=== PATIENT | female | born 1960 | race African-American/Black ===

== ENCOUNTER 2016-10-26 07:12 | Emergency (ER) | payer MEDICARE, OTHER ==
[~2016-10-26] VITALS: Ht 162.6 cm; Wt 79.4 kg
[~2016-10-26 07:12] MED LIST: ASPIRIN81 MG ORAL; AUGMENTIN 875-1 EAC1 ORAL; BENTYL10 MG ORAL; CYCLOBENZAPRINE10 MG ORAL; IBUPROFEN600 MG ORAL; IBUPROFEN600 MG PO; INSULIN LEVIMIR SQ; KEFLEX500 MG ORAL; METFORMIN HCL1000 M1 ORAL; MONISTAT 11 EACH VG; NORCO 5-325 TA1 EACH ORAL; TRAMADOL HCL50 MG ORAL; TYLENOL325 MG ORAL; ZOFRAN4 MG ORAL
--- NOTE | 2016-10-26 07:40 | Emergency Room Report ---
History of Present Illness General Chief Complaint: Back Pain-No Injury Source: Patient Present Illness HPI Presents with low back pain and hip pain on the left-hand side. She believes the rain in the cold caused her to get worse. She has no more pain medication at home aside from ibuprofen. Also feels muscle stiffness up in the upper part of her back. Muscle relaxants help - make her sleepy. She denies any fevers, cough, chest pain, dysuria it has been a change in her bowels. She denies saddle numbness. She's not on blood thinners. The patient had stabilization of her lumbar spine with screws in June. There has been exacerbations of the back pain since then. Allergies: Coded Allergies: No Known Allergies (Unverified , 04/14/13) Patient History Past Medical History: see triage record Past Surgical History: other - lumbar surgery Social History: Reports: smoking Social History Narrative with Reviewed Nursing Documentation: PMH: Agreed, PSxH: Agreed Nursing Documentation-PMH Hx Cardiac Problems: No Hx Hypertension: No Hx Pacemaker: No Hx Asthma: No Hx COPD: No Hx Diabetes: No Hx Cancer: No Hx Dialysis: No History Of Psychiatric Problem: No Hx Neurological Problems: No Hx Cerebrovascular Accident: No Hx Seizures: No Review of Systems All Other Systems: negative except mentioned in HPI Physical Exam Vital Signs Date Time Temp Pulse Resp B/P Pulse Ox O2 Delivery O2 Flow Rate FiO2 10/26/16 07:28 98.1 78 16 130/80 98 Room Air Sp02 EP Interpretation: reviewed, normal General Appearance: well appearing, no apparent distress, GCS 15 Head: normocephalic, atraumatic Eyes: bilateral eye PERRL, bilateral eye normal inspection ENT: hearing grossly normal, normal voice Neck: full range of motion, supple Respiratory: lungs clear, no respiratory distress, speaking full sentences Cardiovascular #1: regular rate, rhythm, no edema Gastrointestinal: normal inspection, non tender Musculoskeletal: normal range of motion - SLR with some increase in back pain, not sciatic pain, no calf tenderness, other - upper back muscle tenderness and stiffness. Lumbar tenderness also, not central. Neurologic: alert, motor strength/tone normal, DTRs symmetric, sensory intact, normal gait, speech normal Psychiatric: mood/affect normal Skin: no rash, other - lumbar scar Medical Decision Making Diagnostic Impression: Primary Impression: Back Pain Additional Impression: Muscle spasm ER Course Patient presents with exacerbation of back pain. No trauma. No red flag symptoms or signs. Studies not indicated. Analgesia ordered. Improved with treatment. Patient stable for outpatient observation and treatment. Last Vital Signs Date Time Temp Pulse Resp B/P Pulse Ox O2 Delivery O2 Flow Rate FiO2 10/26/16 08:57 98.0 62 16 98 Room Air BP 120/60 Status: improved Disposition: HOME, SELF-CARE Condition: Improved Scripts Cyclobenzaprine Hcl* (FLEXERIL*) 10 Mg Tablet 10 MG ORAL THREE TIMES A DAY, #10 TAB Prov: Richar Robles M.D. 10/26/16 Hydrocodone Bit/Acetaminophen 5-325* (NORCO 5-325*) 1 Each Tablet 1 TAB ORAL Q6H Y for For Pain, #14 TAB 0 Refills Prov: Richar Robles M.D. 10/26/16 Richar Robles M.D. Oct 26, 2016 07:40
[2016-10-26] MEDS ORDERED: Oxycodone/Acetaminophen 5-325 ORAL ONE (07:45)
[2016-10-26] MEDS ORDERED: Ketorolac 60mg Inj IM ONE (07:45)
[2016-10-26] MEDS ORDERED: CYCLOBENZAPRINE10 MG ORAL (08:28)
[2016-10-26] MEDS ORDERED: NORCO 5-325 TA1 EACH ORAL (08:28)
[2016-10-26 08:56] VITALS: BP 120/60
== END 2016-10-26 09:02 | disposition home or self-care (01) ==
LOC: EMR 08:05
DX: M54.9 Dorsalgia, unspecified (principal); M62.838 Other muscle spasm; F17.200 Nicotine dependence, unspecified, uncomplicated
CPT/HCPCS: 96372; 99284

== ENCOUNTER 2016-11-04 15:15 | Outpatient (RCR) | payer MEDICARE, OTHER | END 2016-11-25 | disposition home or self-care (01) | LOC: PTY 15:15 | DX: M54.5 Low back pain (principal); E11.9 Type 2 diabetes mellitus without complications | CPT/HCPCS: 97110; 97162; G8978; G8979 ==

== ENCOUNTER 2017-04-01 03:23 | Emergency (ER) | payer MEDICARE, OTHER ==
[~2017-04-01] VITALS: Ht 162.6 cm; Wt 76.7 kg
[2017-04-01 03:55] VITALS: BP 152/88
[2017-04-01] MEDS ORDERED: PERCOCET 5-3251 EACH ORAL (03:56)
--- NOTE | 2017-04-01 03:57 | Emergency Room Report ---
History of Present Illness General Chief Complaint: Back Pain-No Injury Source: Patient Present Illness HPI Is a 56-year-old female with previous back surgery. She was doing well until now. She presents with chief complaint of lower back pain. Has been on off for over a week now. Pain is to her lower back and radiating to the left and right intermittently. No incontinence of bowel or urine. No trauma. No anesthesia. Pain is 10 out of 10. She is currently working 2 jobs and is on her feet a lot. Also a lot of motion and lifting. Allergies: Coded Allergies: No Known Allergies (Unverified , 04/14/13) Patient History Past Medical History: see triage record, old chart reviewed Past Surgical History: other Pertinent Family History: none Social History: Denies: smoking Now: No Immunizations: other Reviewed Nursing Documentation: PMH: Agreed, PSxH: Agreed Nursing Documentation-PMH Hx Cardiac Problems: No Hx Hypertension: No Hx Pacemaker: No Hx Asthma: No Hx COPD: No Hx Diabetes: No Hx Cancer: No Hx Dialysis: No Hx Neurological Problems: No Hx Cerebrovascular Accident: No Hx Seizures: No Review of Systems Eye: Denies: blurred vision, eye pain ENT: Denies: ear pain, nose congestion, throat swelling Respiratory: Denies: cough, shortness of breath Cardiovascular: Denies: chest pain, palpitations Gastrointestinal: Denies: abdominal pain, diarrhea, nausea, vomiting Musculoskeletal: Reports: back pain, Denies: joint pain Skin: Denies: rash Neurological: Denies: headache, numbness Endocrine: Denies: increased thirst, increased urine Hematologic/Lymphatic: Denies: easy bruising All Other Systems: negative except mentioned in HPI Physical Exam Vital Signs Date Time Temp Pulse Resp B/P Pulse Ox O2 Delivery O2 Flow Rate FiO2 04/01/17 03:27 98.1 78 16 152/88 99 Room Air vitals normal except for high blood pressure Sp02 EP Interpretation: reviewed, normal General Appearance: well appearing, no apparent distress, alert Head: normocephalic, atraumatic Eyes: bilateral eye EOMI, bilateral eye PERRL ENT: hearing grossly normal, normal pharynx Neck: full range of motion, supple, no meningismus Respiratory: chest non-tender, lungs clear, normal breath sounds Cardiovascular #1: regular rate, rhythm, no murmur Gastrointestinal: normal bowel sounds, non tender, no mass, no organomegaly, no bruit, non-distended Musculoskeletal: gait/station normal, normal range of motion, other - Diffuse lower lumbar tenderness. Midline scar. Neurologic: alert, oriented x3 Psychiatric: mood/affect normal Skin: warm/dry Medical Decision Making Diagnostic Impression: Primary Impression: acute lumbar strain ER Course Patient presents with exacerbation of lower back pain. No evidence of cauda equina syndrome, spinal epidural abscess or neoplastic process. Her back pain is exacerbated by her mom hours at work. We'll discharge home. Last Vital Signs Date Time Temp Pulse Resp B/P Pulse Ox O2 Delivery O2 Flow Rate FiO2 04/01/17 03:27 98.1 78 16 152/88 99 Room Air Status: improved Disposition: HOME, SELF-CARE Condition: Stable Scripts Oxycodone/Acetaminophen 5-325* (PERCOCET 5-325 MG TABLET*) 1 Each Tablet 1 TAB ORAL Q6H Y for For Pain, #20 TAB Prov: THEODORE ALBA M.D. 04/01/17 Referrals: NON PHYSICIAN (PCP) Patient Instructions: Back Pain, Adult Additional Instructions: Followup with your Dr. in 7 days. Return if symptom worsen. THEODORE ALBA M.D. Apr 01, 2017 03:56
[2017-04-01] MEDS ORDERED: HYDROmorphone 1mg/ml Carpuject IM ONE (04:00)
[2017-04-01 04:05] VITALS: BP 152/88
== END 2017-04-01 04:06 | disposition home or self-care (01) ==
LOC: EMR 03:36
DX: S39.012A Strain of muscle, fascia and tendon of lower back, initial encounter (principal); X50.9XXA Other and unspecified overexertion or strenuous movements or postures, initial encounter; Y92.9 Unspecified place or not applicable
CPT/HCPCS: 96372; 99283; J1170

== ENCOUNTER 2017-08-02 23:34 | Emergency (ER) | payer MEDICARE, OTHER ==
[~2017-08-02] VITALS: Ht 162.6 cm; Wt 78.5 kg
[~2017-08-02 23:34] MED LIST changes: +PERCOCET 5-3251 EACH ORAL
[2017-08-02] MEDS ORDERED: UNOBMED (23:42)
[2017-08-02 23:45] VITALS: BP 166/84
[2017-08-03] LABS: APPEARANCE,URINE CLEAR; BILIRUBIN, URINE NEGATIVE (NEGATIVE); COLOR,URINE PALE YELLOW; GLUCOSE, URINE (UA) NEGATIVE (NEGATIVE); KETONES,URINE NEGATIVE (NEGATIVE); LEUKOCYTE ESTERASE ,URINE NEGATIVE (NEGATIVE); NITRITE,URINE NEGATIVE (NEGATIVE); PH,URINE 7 (4.5-8.0); PROTEIN,URINE NEGATIVE (NEGATIVE); UROBILINOGEN,URINE NORMAL MG/DL (0.0-1.0)
--- NOTE | 2017-08-03 00:04 | Emergency Room Report ---
History of Present Illness General Chief Complaint: Female Urogenital Problems Source: Patient Present Illness HPI Is a 57-year-old female who presents with chief complaint of vaginal itching and redness. Onset for last week or so. She saw her parasitology teacher a week and half ago for mild itching. Diagnosis with atrophic vaginal wall and prescribe estrogen cream. She's also tried Monistat which makes her break out more. Denies any fever chills denies any nausea vomiting. She said she to her that was negative. She essentially active with her . Allergies: Coded Allergies: No Known Allergies (Unverified , 04/14/13) Patient History Past Medical History: see triage record, old chart reviewed Past Surgical History: other Pertinent Family History: none Social History: Denies: smoking Last Menstrual Period: n/a Now: No Immunizations: other Reviewed Nursing Documentation: PMH: Agreed, PSxH: Agreed Nursing Documentation-PMH Hx Cardiac Problems: No Hx Hypertension: No Hx Pacemaker: No Hx Asthma: No Hx COPD: No Hx Diabetes: No Hx Cancer: No Hx Dialysis: No Hx Neurological Problems: No Hx Cerebrovascular Accident: No Hx Seizures: No Review of Systems Eye: Denies: eye pain, blurred vision ENT: Denies: ear pain, nose congestion, throat swelling Respiratory: Denies: cough, shortness of breath Cardiovascular: Denies: chest pain, palpitations Gastrointestinal: Denies: abdominal pain, diarrhea, nausea, vomiting Musculoskeletal: Denies: back pain, joint pain Skin: Denies: rash Neurological: Denies: headache, numbness Endocrine: Denies: increased thirst, increased urine Hematologic/Lymphatic: Denies: easy bruising All Other Systems: negative except mentioned in HPI Physical Exam Vital Signs Date Time Temp Pulse Resp B/P (MAP) Pulse Ox O2 Delivery O2 Flow Rate FiO2 08/02/17 23:36 97.3 69 16 166/84 100 Room Air vitals with high blood pressure Sp02 EP Interpretation: reviewed, normal General Appearance: well appearing, no apparent distress, alert Head: normocephalic, atraumatic Eyes: bilateral eye PERRL, bilateral eye EOMI ENT: hearing grossly normal, normal pharynx Neck: full range of motion, supple, no meningismus Respiratory: chest non-tender, lungs clear, normal breath sounds Cardiovascular #1: regular rate, rhythm, no murmur Gastrointestinal: normal bowel sounds, non tender, no mass, no organomegaly, no bruit, non-distended Genitourinary: other - Pelvic exam done with female nurse walnut dehydrator operator. Externally, there is pimply lesions on the right labia majora. Internally, there is copious amount of whitish dc. Musculoskeletal: back normal, gait/station normal, normal range of motion Neurologic: alert, oriented x3 Psychiatric: mood/affect normal Skin: warm/dry Medical Decision Making Diagnostic Impression: Primary Impression: Vaginitis Qualified Codes: N76.0 - Acute vaginitis ER Course Patient with a vaginitis. No evidence of acute vaginosis or Trichomonas. She may have gonorrhea. I sent a culture and go ahead and treat her with a shot of Rocephin. No evidence of UTI. No evidence of herpes. We'll discharge home. Last Vital Signs Date Time Temp Pulse Resp B/P (MAP) Pulse Ox O2 Delivery O2 Flow Rate FiO2 08/02/17 23:36 97.3 69 16 166/84 100 Room Air Status: improved Disposition: HOME, SELF-CARE Condition: Stable Referrals: NON PHYSICIAN (PCP) Patient Instructions: Vaginitis Additional Instructions: Followup your Dr. in 7 days. Return if worse. THEODORE ALBA M.D. Aug 03, 2017 00:04
[2017-08-03 01:18] VITALS: BP 166/84
== END 2017-08-03 01:17 | disposition home or self-care (01) ==
LOC: EMR 23:50
DX: N76.0 Acute vaginitis (principal)
CPT/HCPCS: 81003; 87081; 87205; 87210; 87590; 96372; 99283; J0696

== ENCOUNTER 2017-10-07 22:25 | Emergency (ER) | payer MEDICARE, OTHER ==
[~2017-10-07] VITALS: Ht 162.6 cm; Wt 78.9 kg
[~2017-10-07 22:25] MED LIST changes: +UNOBMED
[2017-10-07] MEDS ORDERED: METFORMIN HCL500 M1 ORAL (22:44)
[2017-10-07] MEDS ORDERED: TRAMADOL HCL50 MG ORAL (22:44)
[2017-10-07 22:50] VITALS: BP 151/88
[2017-10-07] MEDS ORDERED: PREDNISONE20 MG ORAL (23:24)
[2017-10-07 23:34] VITALS: BP 151/88
--- NOTE | 2017-10-07 23:58 | Emergency Room Report ---
History of Present Illness General Chief Complaint: Stroke Symptoms Source: Patient Present Illness HPI 57-year-old female, no significant past medical history, presenting with left- sided facial numbness and slurred speech. States it happened gradually. No other complaints. No headache no neck pain. No arm or leg weakness Allergies: Coded Allergies: No Known Allergies (Unverified , 04/14/13) Patient History Past Medical History: see triage record Past Surgical History: none Pertinent Family History: none Last Menstrual Period: n/a Reviewed Nursing Documentation: PMH: Agreed, PSxH: Agreed Nursing Documentation-PMH Past Medical History: No History, Except For Hx Cardiac Problems: No Hx Hypertension: No Hx Pacemaker: No Hx Asthma: No Hx COPD: No Hx Diabetes: Yes - dm2 Hx Cancer: No Hx Dialysis: No Hx Neurological Problems: No Hx Cerebrovascular Accident: No Hx Seizures: No Review of Systems All Other Systems: negative except mentioned in HPI Physical Exam Vital Signs Date Time Temp Pulse Resp B/P (MAP) Pulse Ox O2 Delivery O2 Flow Rate FiO2 10/07/17 22:38 99.0 70 16 151/88 98 Room Air Sp02 EP Interpretation: reviewed, normal General Appearance: normal inspection, well appearing, no apparent distress, alert, GCS 15, non-toxic Head: normocephalic, atraumatic Eyes: bilateral eye normal inspection, bilateral eye PERRL, bilateral eye EOMI ENT: normal ENT inspection, normal pharynx, normal voice, moist mucus membranes Neck: normal inspection, full range of motion, supple Respiratory: normal inspection, lungs clear, normal breath sounds, no respiratory distress, no retraction, no wheezing, speaking full sentences, chest symmetrical Cardiovascular #1: normal inspection, regular rate, rhythm, no edema, normal capillary refill Cardiovascular #2: 2+ radial (R), 2+ radial (L) Gastrointestinal: normal inspection, non tender, soft, non-distended, no guarding Musculoskeletal: normal inspection, back normal, normal range of motion, non- tender Neurologic: alert, oriented x3, responsive, motor strength/tone normal, normal gait, speech normal, other - Left sided facial droop, unable to fully close the left eye, unable to lift her left eyebrow Psychiatric: normal inspection, judgement/insight normal, memory normal Skin: normal inspection, normal color, no rash, warm/dry, well hydrated, normal turgor Medical Decision Making Diagnostic Impression: Primary Impression: Chiang's palsy ER Course 57-year-old female with left-sided facial numbness DDX: Chiang's palsy on exam Plan: None CT head was already ordered for stroke code ER course: Patient has remained stable during ED stay. Disposition: Patient is to be discharged to home. Prescriptions given are prednisone Patient is instructed to follow up with their primary care doctor within 5 days. Please note that this Emergency Department Report was dictated using [employer] driver technology software, occasionally this can lead to erroneous entry secondary to interpretation by the dictation equipment CT/MRI/US Diagnostic Results CT/MRI/US Diagnostic Results : Imaging Test Ordered: ct head Impression CT HEAD: No ICH, mass effect or edema. No evidence of acute cortical stroke. Visualized sinuses and mastoid air cells are clear. Last Vital Signs Date Time Temp Pulse Resp B/P (MAP) Pulse Ox O2 Delivery O2 Flow Rate FiO2 10/07/17 22:38 99.0 70 16 151/88 98 Room Air Disposition: HOME, SELF-CARE Condition: Stable Scripts Prednisone* (PREDNISONE*) 20 Mg Tablet 60 MG ORAL DAILY, #42 TAB Prov: Janeen Olsen M.D. 10/07/17 Patient Instructions: Chiang Palsy Janeen Olsen M.D. Oct 07, 2017 23:58
--- NOTE | 2017-10-08 09:40 | Diagnostic Imaging Report ---
Indication: Headache Technique: Contiguous 5 mm thick transaxial imaging of the head obtained in a Siemens Sensation [address] scanner. Soft tissue and bone windows generated. Automatic Exposure Control was utilized. Total Dose length Product (DLP): 1298.[address] Dose Index Volume (CTDIvol): 70.38 mGy Comparison: none Findings: The size and configuration of the cortical sulci, basal cisterns, and ventricles are within normal limits for age. There is no mass effect, midline shift, or edema identified. There is no evidence of acute hemorrhage or abnormal intra-axial or extra-axial fluid collections. The bones and soft tissues are unremarkable. Impression: No mass effect, edema or acute bleed. [facility] has communicated the preliminary results to the Emergency Department. Their findings are largely concordant with this report. The CT scanner at [facility] is accredited by the [employer] and the scans are performed using dose optimization techniques as appropriate to a performed exam including Automatic Exposure control.
== END 2017-10-07 23:40 | disposition home or self-care (01) ==
LOC: EMR 23:37
DX: G51.0 Bell's palsy (principal); R51 Headache; E11.9 Type 2 diabetes mellitus without complications
CPT/HCPCS: 70450; 99284

== ENCOUNTER → 2018-01-13 | Emergency (ER) | payer MEDICARE, OTHER ==
[~2018-01-13] VITALS: Ht 162.6 cm; Wt 78.9 kg
[~2018-01-13] MED LIST changes: +METFORMIN HCL500 M1 ORAL; +PREDNISONE20 MG ORAL
[2018-01-13 16:25] VITALS: BP 152/82
--- NOTE | 2018-01-13 21:58 | Emergency Room Report ---
History of Present Illness General Chief Complaint: Back Pain-No Injury Present Illness HPI Patient left without being seen. Allergies: Coded Allergies: No Known Allergies (Unverified , 04/14/13) Patient History Past Medical History: see triage record, old chart reviewed Reviewed Nursing Documentation: PMH: Agreed; PSxH: Agreed Nursing Documentation-PMH Hx Cardiac Problems: No Hx Hypertension: No Hx Pacemaker: No Hx Asthma: No Hx COPD: No Hx Diabetes: Yes - dm2 Hx Cancer: No Hx Dialysis: No Hx Neurological Problems: No - Lower back surgery 06/2017 Hx Cerebrovascular Accident: No Hx Seizures: No Review of Systems All Other Systems: negative except mentioned in HPI Physical Exam Vital Signs Date Time Temp Pulse Resp B/P (MAP) Pulse Ox O2 Delivery O2 Flow Rate FiO2 01/13/18 16:25 98.3 82 19 152/82 99 Room Air 98.2 Medical Decision Making PA Attestation Dr. Cook is my supervising Physician whom patient management has been discussed with. Diagnostic Impression: Primary Impression: Patient left without being seen ER Course Patient left without being seen. Last Vital Signs Date Time Temp Pulse Resp B/P (MAP) Pulse Ox O2 Delivery O2 Flow Rate FiO2 01/13/18 16:25 98.3 82 19 152/82 99 Room Air 98.2 Disposition: LEFT W/OUT BEING SEEN Referrals: NON PHYSICIAN (PCP) Philip Ward Jan 13, 2018 21:58
== END | disposition left against medical advice (07) ==
LOC: EMR 18:00
DX: M54.9 Dorsalgia, unspecified (principal); Z53.21 Procedure and treatment not carried out due to patient leaving prior to being seen by health care provider
CPT/HCPCS: 99281

== ENCOUNTER 2018-05-09 09:10 | Emergency (ER) | payer MEDICARE, OTHER ==
[~2018-05-09] VITALS: Ht 162.6 cm; Wt 79.8 kg
[2018-05-09 09:26] VITALS: BP 149/73
[2018-05-09] MEDS ORDERED: Norco 5mg/325mg tab ORAL ONE (10:45)
[2018-05-09 10:47] LABS: APPEARANCE,URINE CLEAR; BILIRUBIN, URINE NEGATIVE (NEGATIVE); COLOR,URINE PALE YELLOW; GLUCOSE, URINE (UA) NEGATIVE (NEGATIVE); KETONES,URINE NEGATIVE (NEGATIVE); LEUKOCYTE ESTERASE ,URINE NEGATIVE (NEGATIVE); NITRITE,URINE NEGATIVE (NEGATIVE); PH,URINE 8 (4.5-8.0); PROTEIN,URINE NEGATIVE (NEGATIVE); UROBILINOGEN,URINE NORMAL MG/DL (0.0-1.0)
[2018-05-09] MEDS ORDERED: LIDOCAINE700 M1 TP (11:04)
[2018-05-09] MEDS ORDERED: NORCO 5-325 TA1 EACH ORAL (11:04)
[2018-05-09 11:12] VITALS: BP 149/73
--- NOTE | 2018-05-14 07:39 | Emergency Room Report ---
History of Present Illness General Chief Complaint: Pain Source: Patient, Medical Record Present Illness HPI Patient is a 57-year-old female presented after the continued low back pain. Patient gradual onset of symptoms. Patient reports having prior history of lumbar disc disease which had previously had imaging studies performed. Patient states she had prior lumbar pain. She reports similar symptoms in the past. She denies any new weakness. She did not have any bladder or bowel dysfunction. Allergies: Coded Allergies: No Known Allergies (Unverified , 04/14/13) Patient History Past Medical History: see triage record Reviewed Nursing Documentation: PMH: Agreed; PSxH: Agreed Nursing Documentation-PMH Past Medical History: No History, Except For Hx Cardiac Problems: No Hx Hypertension: No Hx Pacemaker: No Hx Asthma: No Hx COPD: No Hx Diabetes: Yes - dm2 Hx Cancer: No Hx Dialysis: No Hx Neurological Problems: No - Lower back surgery 06/2017 Hx Cerebrovascular Accident: No Hx Seizures: No Medical Decision Making Diagnostic Impression: Primary Impression: Chronic back pain ER Course Patient presented for back pain. Differential diagnosis included but was not limited to herniated disc, cauda equina syndrome, abdominal aortic aneurysm, perforated ulcer, spinal epidural abscess, spinal stenosis, lumbar fracture, metastatic lesion, pyelonephritis. Patient has a benign exam and does not appear to require any further imaging or laboratory testing at this time. The patient presented some worsening of her chronic back pain. Patient given prescription for pain medications. She is advised follow-up with her primary care physician for further evaluation and treatment. The patient is advised to follow up with primary care doctor in 1-2 days. Patient is advised to return if any worsening condition or if any changes in status that are concerning. This report is dictated with [employer] forming machine tender software which may occasionally lead to discrepancies related to use of this software. Labs Test 05/09/18 10:34 Urine Color Pale yellow Urine Appearance Clear Urine pH 8 (4.5-8.0) Urine Specific [place] 1.005 (1.005-1.035) Urine Protein Negative (NEGATIVE) Urine Glucose (UA) Negative (NEGATIVE) Urine Ketones Negative (NEGATIVE) Urine Occult Blood Negative (NEGATIVE) Urine Nitrite Negative (NEGATIVE) Urine Bilirubin Negative (NEGATIVE) Urine Urobilinogen Normal MG/DL (0.0-1.0) Urine Leukocyte Esterase Negative (NEGATIVE) Status: improved Disposition: HOME, SELF-CARE Condition: Stable Scripts Hydrocodone Bit/Acetaminophen 5-325* (NORCO 5-325*) 1 Each Tablet 1 TAB ORAL Q6H PRN for For Pain, #10 TAB 0 Refills Prov: Festus Peng MD 05/09/18 Lidocaine (Lidocaine) 1 Each Adh..patch 5 % TP DAILY, #20 PATCH Prov: Festus Peng MD 05/09/18 Patient Instructions: Back Pain, Adult Festus Peng MD May 14, 2018 07:39
== END 2018-05-09 11:15 | disposition home or self-care (01) ==
LOC: EMR 09:50
DX: G89.29 Other chronic pain (principal); M54.5 Low back pain; E11.9 Type 2 diabetes mellitus without complications
CPT/HCPCS: 81003; 99284

== ENCOUNTER 2018-06-03 14:43 | Emergency (ER) | payer MEDICARE, OTHER ==
[~2018-06-03] VITALS: Ht 162.6 cm; Wt 78.9 kg
[~2018-06-03 14:43] MED LIST changes: +LIDOCAINE700 M1 TP
[2018-06-03] MEDS ORDERED: AMLODIPINE BESYL5 MG ORAL (14:58)
[2018-06-03] MEDS ORDERED: Promethazine/Codeine 5ml UD ORAL ONE (15:45)
[2018-06-03] MEDS ORDERED: Albuterol ud Inhalation HHN ONE (15:45)
[2018-06-03 16:05] VITALS: BP 157/78
--- NOTE | 2018-06-03 16:10 | Emergency Room Report ---
History of Present Illness General Chief Complaint: Flu Like Symptoms Source: Patient Present Illness HPI 57-year-old female presents to the emergency department complaining of persistent dry cough with nasal congestion and rhinorrhea, frontal sinus pressure headache and sore throat 2 days. Pt. reports 8/10 in severity Sore throat. Patient reports subjective fevers and chills she states that she's been taking DayQuil without relief of her symptoms. Patient also reports generalized fatigue. Patient denies recent travel or ill contacts with similar symptoms. Patient denies sudden onset of her headache. She reports being diagnosed with asthma as a child she states she is having some wheezing and cough is worse at night. Patient denies epigastric pain or history of GERD. Denies ear pain, high fevers, neck pain/stiffness, irritability, photophobia dehydration, N/V/D. Denies Cp, Palpitations, LOC, AMS, seizures, paresthesias, or changes in Hearing or vision.. Denies hx of smoking or COPD. Allergies: Coded Allergies: No Known Allergies (Unverified , 04/14/13) Patient History Past Medical History: see triage record Past Surgical History: none Pertinent Family History: none Now: No Immunizations: UTD - except for Pneumoncoccal . Reviewed Nursing Documentation: PMH: Agreed; PSxH: Agreed Nursing Documentation-PMH Past Medical History: No History, Except For Hx Cardiac Problems: No Hx Hypertension: Yes Hx Pacemaker: No Hx Asthma: No Hx COPD: No Hx Diabetes: Yes Hx Cancer: No Hx Dialysis: No Hx Neurological Problems: No - Lower back surgery 06/2017 Hx Cerebrovascular Accident: No Hx Seizures: No Review of Systems All Other Systems: negative except mentioned in HPI Physical Exam Vital Signs Date Time Temp Pulse Resp B/P (MAP) Pulse Ox O2 Delivery O2 Flow Rate FiO2 06/03/18 14:54 98.3 80 14 157/78 97 Room Air 98.2 Sp02 EP Interpretation: reviewed, normal General Appearance: no apparent distress, alert, GCS 15, non-toxic Head: normocephalic, atraumatic Eyes: bilateral eye normal inspection, bilateral eye PERRL ENT: hearing grossly normal, normal voice, TMs + canals normal, uvula midline, moist mucus membranes, nasal congestion, pharyngeal erythema, other - no tonsillar swelling or exudates Neck: full range of motion, no meningismus, no bony tend Respiratory: chest non-tender, lungs clear, speaking full sentences, wheezing - scant bialteral wheezes Cardiovascular #1: regular rate, rhythm, no edema, normal capillary refill Musculoskeletal: back normal, gait/station normal, normal range of motion, non- tender Neurologic: alert, oriented x3, responsive, motor strength/tone normal, sensory intact, normal gait, speech normal, grossly normal Psychiatric: judgement/insight normal Skin: normal color, no rash, warm/dry, well hydrated Lymphatic: no adenopathy Medical Decision Making PA Attestation Dr. Israel is my supervising Physician whom patient management has been discussed with. Diagnostic Impression: Primary Impression: Acute bronchitis Qualified Codes: J20.9 - Acute bronchitis, unspecified Additional Impression: Viral syndrome ER Course 57-year-old female presents to the emergency department complaining of persistent dry cough with nasal congestion and rhinorrhea, frontal sinus pressure headache and sore throat 2 days. Pt. reports 8/10 in severity Sore throat. Patient reports subjective fevers and chills she states that she's been taking DayQuil without relief of her symptoms. Patient also reports generalized fatigue. Patient denies recent travel or ill contacts with similar symptoms. Patient denies sudden onset of her headache. She reports being diagnosed with asthma as a child she states she is having some wheezing and cough is worse at night. Patient denies epigastric pain or history of GERD. Denies ear pain, high fevers, neck pain/stiffness, irritability, photophobia dehydration, N/V/D. Denies Cp, Palpitations, LOC, AMS, seizures, paresthesias, or changes in Hearing or vision.. Denies hx of smoking or COPD. Ddx considered but are not limited to URI, pneumonia, PE, strep pharyngitis, meningitis, bronchitis, cardiac etiology just to name a few. Vital signs: Pt.is afebrile VS are WNL H&PE are most consistent with bronchitis ORDERS: none required at this time, the diagnosis is clinical ED INTERVENTIONS: -Albuterol HHN -Cough Syrup PO -I do not identify an emergent condition at this time. With current presentation , pt. is stable for close outpatient follow up and conservative treatment. D/ w pt. to return promptly to ED with worsening or new symptoms.- Pt. verbalizes' understanding and agreement with proposed treatment plan.proposed treatment plan. DISCHARGE: At this time pt. is stable for d/c to home. Will provide printed patient care instructions, and any necessary prescriptions. Care plan and follow up instructions have been discussed with the patient prior to discharge. Last Vital Signs Date Time Temp Pulse Resp B/P (MAP) Pulse Ox O2 Delivery O2 Flow Rate FiO2 06/03/18 16:05 98.2 18 157/78 98 Room Air 98.2 06/03/18 16:05 79 Disposition: HOME, SELF-CARE Condition: Stable Scripts Acetaminophen* (TYLENOL EXTRA STRENGTH*) 500 Mg Tablet 500 MG ORAL Q6H PRN for Mild Pain/Temp > 100.5, #20 TAB 0 Refills Prov: Gin Gilbert 06/03/18 Albuterol Sulfate* (ALBUTEROL SULFATE MDI*) 8.5 Gm Hfa.aer.ad 2 PUFF INH Q3H, #1 INH 0 Refills Prov: Gin Gilbert 06/03/18 Codeine/Promethazine Hcl* (PROMETHAZINE-CODEINE SYRUP*) 118 Ml Syrup 5 ML ORAL Q6H PRN for For Cough, #120 ML 0 Refills Prov: Gin Gilbert 06/03/18 Referrals: NON PHYSICIAN (PCP) Departure Forms: Return to Work Return to Work Date: Jun 07, 2018 Work Restrictions: None Return to Full Activity: Jun 07, 2018 Patient Instructions: Acute Bronchitis, [id number] Additional Instructions: Take medications as directed. Follow up with a Primary Care Provider in 3-5 days, even if your symptoms have resolved. --Please review list of primary care clinics, if you do not already have a primary care provider Return sooner to ED if new symptoms occur, or current symptoms become worse. Do not drink alcohol, drive, or operate heavy machinery while taking Cough Syrup as this may cause drowsiness. - Please note that this Emergency Department Report was dictated using [employer] tender technology software, occasionally this can lead to erroneous entry secondary to interpretation by the dictation equipment. Gin Gilbert Jun 03, 2018 16:10
[2018-06-03] MEDS ORDERED: TYLENOL EXTRA500 MG ORAL (16:11)
[2018-06-03] MEDS ORDERED: PROMETHAZINE-C118 M1 ORAL (16:11)
[2018-06-03] MEDS ORDERED: ALBUTEROL SULF8.5 GM INH (16:11)
[2018-06-03 18:12] VITALS: BP 157/78
== END 2018-06-03 16:00 | disposition home or self-care (01) ==
LOC: EMR 16:00
DX: J20.9 Acute bronchitis, unspecified (principal); B34.9 Viral infection, unspecified; E11.9 Type 2 diabetes mellitus without complications; I10 Essential (primary) hypertension
CPT/HCPCS: 94640; 94664; 99283

== ENCOUNTER 2018-07-11 01:11 | Emergency (ER) | payer MEDICARE, OTHER ==
[~2018-07-11] VITALS: Ht 162.6 cm; Wt 78.5 kg
[~2018-07-11 01:11] MED LIST changes: +ALBUTEROL SULF8.5 GM INH; +AMLODIPINE BESYL5 MG ORAL; +PROMETHAZINE-C118 M1 ORAL; +TYLENOL EXTRA500 MG ORAL
[2018-07-11] MEDS ORDERED: Ketorolac 30mg Inj IM ONE (01:45)
[2018-07-11] MEDS ORDERED: Methocarbamol 750mg tab ORAL ONE (01:45)
[2018-07-11 01:48] LABS: APPEARANCE,URINE CLOUDY; BILIRUBIN, URINE NEGATIVE (NEGATIVE); COLOR,URINE PALE YELLOW; GLUCOSE, URINE (UA) NEGATIVE (NEGATIVE); KETONES,URINE NEGATIVE (NEGATIVE); LEUKOCYTE ESTERASE ,URINE 3+ (NEGATIVE); NITRITE,URINE POSITIVE (NEGATIVE); PH,URINE 6 (4.5-8.0); PROTEIN,URINE 2+ (NEGATIVE); UROBILINOGEN,URINE NORMAL MG/DL (0.0-1.0)
[2018-07-11] MEDS ORDERED: IBUPROFEN600 MG ORAL (02:18)
[2018-07-11] MEDS ORDERED: NITROFURANTOIN100 M2 ORAL (02:18)
[2018-07-11] MEDS ORDERED: ROBAXIN-750750 MG PO (02:18)
[2018-07-11] MEDS ORDERED: FLUCONAZOLE150 MG ORAL (02:19)
[2018-07-11 02:24] VITALS: BP 138/79
[2018-07-11 02:25] VITALS: BP 138/79
--- NOTE | 2018-07-11 02:52 | Emergency Room Report ---
History of Present Illness General Chief Complaint: Back Pain-No Injury Source: Patient, Medical Record Present Illness HPI 58-year-old female presents ED complaining of back pain. Started 2 days ago. 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 States that she also had used the stairs as the elevator was broken. History of chronic back pain. Had surgery in 2016. Currently wears a back brace. Pain is dull, 8 out of 10, radiating down both legs. Denies bowel or bladder incontinence. Denies any leg or motor weakness. Also complaining of some dysuria. No other aggravating relieving factors. Denies any other associated symptoms Allergies: Coded Allergies: No Known Allergies (Unverified , 04/14/13) Patient History Past Medical History: DM, HTN Past Surgical History: none Pertinent Family History: none Social History: Denies: smoking, alcohol use, drug use Now: No : 4 Para: 4 Immunizations: UTD Reviewed Nursing Documentation: PMH: Agreed; PSxH: Agreed Nursing Documentation-PMH Hx Cardiac Problems: No Hx Hypertension: Yes Hx Pacemaker: No Hx Asthma: No Hx COPD: No Hx Diabetes: Yes Hx Cancer: No Hx Dialysis: No Hx Neurological Problems: No - Lower back surgery 06/2017 Hx Cerebrovascular Accident: No Hx Seizures: No Review of Systems All Other Systems: negative except mentioned in HPI Physical Exam Vital Signs Date Time Temp Pulse Resp B/P (MAP) Pulse Ox O2 Delivery O2 Flow Rate FiO2 07/11/18 01:18 98.3 84 18 146/83 99 Room Air 98.2 Sp02 EP Interpretation: reviewed, normal General Appearance: no apparent distress, alert, GCS 15, non-toxic Head: normocephalic Eyes: bilateral eye normal inspection, bilateral eye PERRL ENT: normal ENT inspection Neck: normal inspection Respiratory: normal inspection Cardiovascular #1: normal inspection Gastrointestinal: normal bowel sounds, non tender, soft, non-distended, no guarding, no rebound Rectal: deferred Genitourinary: no CVA tenderness, no vertebral tenderness Musculoskeletal: tender - paraspinal lumbar tenderness Neurologic: alert, oriented x3, responsive, motor strength/tone normal, sensory intact, speech normal Psychiatric: normal inspection Skin: normal inspection Lymphatic: normal inspection Medical Decision Making Diagnostic Impression: Primary Impression: Back pain Qualified Codes: M54.42 - Lumbago with sciatica, left side; M54.41 - Lumbago with sciatica, right side; G89.29 - Other chronic pain Additional Impression: UTI (urinary tract infection) Qualified Codes: N39.0 - Urinary tract infection, site not specified ER Course Hospital Course 58-year-old female presents ED complaining of lower back pain. No evidence of trauma Differential diagnoses include: pyelonephritis, kidney stone, muscle strain, Lspine fracture Clinical course Patient placed on stretcher. After initial history and physical I ordered toradol and robaxin for pain. UA shows UTI Upon reassessment patient states pain has improved. discussed findings with patient. we will discharge on abx, motrin and robaxin. patient can continue her tylneol #3 for breakthrough pain safe for discharge with close outpatient followup Diagnosis - back pain, UTI Stable and discharged to home with prescription for motrin, robaxin, macrobid. Followup with PMD. Return to ED if symptoms recur or worsen Labs Test 07/11/18 00:40 Urine Color Pale yellow Urine Appearance Cloudy Urine pH 6 (4.5-8.0) Urine Specific [place] 1.015 (1.005-1.035) Urine Protein 2+ (NEGATIVE) Urine Glucose (UA) Negative (NEGATIVE) Urine Ketones Negative (NEGATIVE) Urine Blood 4+ (NEGATIVE) Urine Nitrite Positive (NEGATIVE) Urine Bilirubin Negative (NEGATIVE) Urine Urobilinogen Normal MG/DL (0.0-1.0) Urine Leukocyte Esterase 3+ (NEGATIVE) Urine RBC 5-10 /HPF (0 - 2) Urine WBC Tntc /HPF (0 - 2) Urine Squamous Epithelial Cells Few /LPF (NONE/OCC) Urine Bacteria Many /HPF (NONE) Last Vital Signs Date Time Temp Pulse Resp B/P (MAP) Pulse Ox O2 Delivery O2 Flow Rate FiO2 07/11/18 02:25 98.5 78 18 138/79 98 Room Air 208.9 Status: improved Disposition: HOME, SELF-CARE Condition: Stable Scripts Fluconazole (FLUCONAZOLE) 150 Mg Tablet 150 MG ORAL ONCE, #1 TAB Prov: Henry Trujillo MD 07/11/18 Nitrofurantoin Monohyd/M-Cryst* (MACROBID 100 MG*) 100 Mg Capsule 100 MG ORAL EVERY 12 HOURS for 7 Days, CAP Prov: Henry Trujillo MD 07/11/18 Methocarbamol* (ROBAXIN-750*) 750 Mg Tablet 750 MG PO TID, #21 TAB 0 Refills Prov: Henry Trujillo MD 07/11/18 Ibuprofen* (MOTRIN*) 600 Mg Tablet 600 MG ORAL Q8H PRN for For Pain, #30 TAB 0 Refills Prov: Henry Trujillo MD 07/11/18 Referrals: NON PHYSICIAN (PCP) Departure Forms: Return to Work Return to Work Date: Jul 13, 2018 Work Restrictions: No Heavy Lifting Patient Instructions: Back Pain, Adult Henry Trujillo MD Jul 11, 2018 02:51
== END 2018-07-11 02:30 | disposition home or self-care (01) ==
LOC: EMR 01:41
DX: M54.41 Lumbago with sciatica, right side (principal); N39.0 Urinary tract infection, site not specified; I10 Essential (primary) hypertension; E11.9 Type 2 diabetes mellitus without complications; G89.29 Other chronic pain
CPT/HCPCS: 81001; 87086; 96372; 99283; J1885

== ENCOUNTER 2018-10-21 14:52 | Emergency (ER) | payer MEDICARE, OTHER ==
[~2018-10-21] VITALS: Ht 162.6 cm; Wt 79.4 kg
[~2018-10-21 14:52] MED LIST changes: +FLUCONAZOLE150 MG ORAL; +NITROFURANTOIN100 M2 ORAL; +ROBAXIN-750750 MG PO
[2018-10-21 14:55] VITALS: BP 162/79
[2018-10-21] MEDS ORDERED: OMEPRAZOLE20 M2 ORAL (15:00)
[2018-10-21] MEDS ORDERED: ACETAMINOPHEN-1 EAC1 ORAL (15:00)
[2018-10-21] MEDS ORDERED: HYDROCHLOROTH12.5 MG ORAL (15:00)
[2018-10-21] MEDS ORDERED: ASPIR 8181 MG ORAL (15:00)
--- NOTE | 2018-10-21 15:05 | NUR ---
ED Nurse Note: Pt c/o severe headache consistent x 1 week and blurring of her vision that started today. Pt states she is wearing reading glassess ocassionally and her last vision check was a year ago by her opthalmologist. Pt AAO x4, ambulatory.
[2018-10-21] MEDS ORDERED: Metoclopramide 10mg/2ml Inj IM ONE (15:30)
--- NOTE | 2018-10-21 15:37 | NUR ---
ED Nurse Note: Pt Taken to CT.
--- NOTE | 2018-10-21 15:46 | NUR ---
ED Nurse Note: Pt back from CT.
--- NOTE | 2018-10-21 16:07 | Diagnostic Imaging Report ---
Indications: Headache and blurred vision x3 days Technique: Spiral acquisitions obtained through the brain. Angled axial and coronal 5 x 5 mm slices were reconstructed. Total dose length product 1396.82 mGycm. CTDI vol(s) 70.38 mGy. Dose reduction achieved using automated exposure control Comparison: 10/07/2017 Findings: No evidence of acute intracranial hemorrhage nor edema, mass effect, nor midline shift. Normal pavon-white differentiation. Normal-sized ventricles and extra-axial CSF spaces. Intact calvarium. Visualized orbits and sinuses are unremarkable. No significant interim change Impression: Negative The CT scanner at [facility] is accredited by the [employer] and the scans are performed using protocols designed to limit radiation exposure to as low as reasonably achievable to attain images of sufficient resolution adequate for diagnostic evaluation.
[2018-10-21 17:39] VITALS: BP 154/78
[2018-10-21] MEDS ORDERED: PREDNISONE20 MG ORAL (17:40)
[2018-10-21] MEDS ORDERED: ACETAMINOPHEN500 M3 ORAL (17:40)
[2018-10-21 17:49] VITALS: BP 154/78
--- NOTE | 2018-10-21 17:49 | NUR ---
ED Nurse Note: Pt cleared by ER MD for discharge. ACI/prescription was given and explained to pt and verbalized understanding. All medical devices such as ID band/IV removed. Pt AAOx4, ambulates with steady gait.
--- NOTE | 2018-10-22 10:34 | Emergency Room Report ---
History of Present Illness General Chief Complaint: Headache Source: Patient, Medical Record Present Illness HPI Patient is a 58-year-old female presented after increased headache. Patient reports having prior history of diabetes. She reports headaches in the past. She reports that a prior history of type 2 diabetes and recently adjusted her medications. Headache was described as a left-sided sensation. She does not recall having any prior imaging. She had not been vomiting. She denies any abdominal pain. She denies having any recent eye exams. Allergies: Coded Allergies: No Known Allergies (Unverified , 04/14/13) Patient History Past Medical History: see triage record Reviewed Nursing Documentation: PSxH: Agreed Nursing Documentation-PMH Hx Cardiac Problems: No Hx Hypertension: Yes Hx Pacemaker: No Hx Asthma: No Hx COPD: No Hx Diabetes: Yes Hx Cancer: No Hx Dialysis: No Hx Neurological Problems: No - Lower back surgery 06/2017 Hx Cerebrovascular Accident: No Hx Seizures: No Review of Systems All Other Systems: negative except mentioned in HPI Physical Exam Vital Signs Date Time Temp Pulse Resp B/P (MAP) Pulse Ox O2 Delivery O2 Flow Rate FiO2 10/21/18 14:55 98.1 72 15 162/79 99 Room Air General Appearance: well appearing, no apparent distress, alert, GCS 15, Chronically Ill Head: normocephalic, atraumatic Eyes: bilateral eye PERRL ENT: hearing grossly normal, normal voice Neck: full range of motion, supple Respiratory: no respiratory distress, speaking full sentences Cardiovascular #1: normal inspection, normal peripheral pulses, regular rate, rhythm Gastrointestinal: normal inspection, normal bowel sounds, non tender, soft Musculoskeletal: normal inspection, no calf tenderness Neurologic: normal inspection, alert, oriented x3, responsive, window repairer III-XII nml as tested, normal gait Psychiatric: mood/affect normal Skin: no rash Medical Decision Making Diagnostic Impression: Primary Impression: Headache Additional Impression: Chronic back pain ER Course Patient presented for headache. Differential diagnosis include was not limited to intracranial hemorrhage, viral cephalgia, arteritis, migraine headache, glaucoma among others. Because of complexity of patient's case imaging studies were ordered. CT of the head read by radiologist showed no evidence of acute intracranial hemorrhage or hydrocephalus. Patient has a nonfocal neuro exam. Patient was noted to have good vision in both eyes nature testing. Blood sugar appear to be adequately controlled. Patient was given medications for symptomatic relief. Patient reports having improvement in her headache. Patient was given prescription for Tylenol as well as prednisone. Patient is advised to follow-up with ophthalmology for reevaluation visual changes. At the time of discharge patient was awake alert and oriented and ambulatory without assistance. Last Vital Signs Date Time Temp Pulse Resp B/P (MAP) Pulse Ox O2 Delivery O2 Flow Rate FiO2 10/21/18 17:49 98.1 87 15 154/78 98 Room Air Status: improved Disposition: HOME, SELF-CARE Condition: Stable Scripts Acetaminophen* (ACETAMINOPHEN EXTRA STRENGTH*) 500 Mg Tablet 500 MG ORAL Q6H, #30 TAB Prov: Festus Peng MD 10/21/18 Prednisone* (PREDNISONE*) 20 Mg Tablet 60 MG ORAL DAILY, #15 TAB Prov: eFstus Peng MD 10/21/18 Patient Instructions: General Headache Without Cause Festus Peng MD Oct 22, 2018 10:34
== END 2018-10-21 17:50 | disposition home or self-care (01) ==
LOC: EMR 15:40
DX: R51 Headache (principal); G89.29 Other chronic pain; M54.9 Dorsalgia, unspecified; I10 Essential (primary) hypertension; E11.9 Type 2 diabetes mellitus without complications
CPT/HCPCS: 70450; 96372; 99284; J2765

== ENCOUNTER 2018-12-26 23:57 | Emergency (ER) | payer MEDICARE, OTHER ==
[~2018-12-26 23:57] MED LIST changes: +ACETAMINOPHEN-1 EAC1 ORAL; +ACETAMINOPHEN500 M3 ORAL; +ASPIR 8181 MG ORAL; +HYDROCHLOROTH12.5 MG ORAL; +OMEPRAZOLE20 M2 ORAL
--- NOTE | 2018-12-27 00:15 | NUR ---
ED Nurse Note: pt was not on the waiting room when called
--- NOTE | 2018-12-27 05:20 | Emergency Room Report ---
History of Present Illness General Chief Complaint: To Be Triaged Present Illness Allergies: Coded Allergies: No Known Allergies (Unverified , 04/14/13) Nursing Documentation-PMH Hx Cardiac Problems: No Hx Hypertension: Yes Hx Pacemaker: No Hx Asthma: No Hx COPD: No Hx Diabetes: Yes Hx Cancer: No Hx Dialysis: No Hx Neurological Problems: No - Lower back surgery 06/2017 Hx Cerebrovascular Accident: No Hx Seizures: No Medical Decision Making Diagnostic Impression: Primary Impression: Patient left without being seen ER Course Patient left without being seen Status: unchanged Disposition: LEFT W/OUT BEING SEEN Condition: Stable Referrals: NOT CHOSEN IPA/,REFERRING (PCP) Henry Trujillo MD Dec 27, 2018 05:20
[2018-12-27] MEDS ORDERED: LIDOCAINE700 M1 TP (09:18)
[2018-12-27] MEDS ORDERED: IBUPROFEN400 MG ORAL (09:18)
== END 2018-12-27 00:15 | disposition left against medical advice (07) ==
LOC: EMR 12-27 00:15
DX: Z53.21 Procedure and treatment not carried out due to patient leaving prior to being seen by health care provider (principal)
CPT/HCPCS: 99282

== ENCOUNTER 2018-12-27 07:10 | Emergency (ER) | payer MEDICARE, OTHER ==
[~2018-12-27] VITALS: Ht 162.6 cm; Wt 78.5 kg
[2018-12-27 07:30] VITALS: BP 146/82
--- NOTE | 2018-12-27 07:30 | NUR ---
ED Nurse Note: pt walked in to ED due to right hip pain for 1 week and left arm pain aw swellin on left hand for 1 day. denies any injury or trauma. pt has arthritis. no limited ROM noted. skin warm to touch. no open wound noted. AAO x 4. respirations even and non-labored noted. will wait for the further order.
--- NOTE | 2018-12-27 07:36 | Emergency Room Report ---
History of Present Illness General Chief Complaint: Pain Source: Patient Present Illness HPI Patient is a 58-year-old female who presented after increased right-sided hip pain. Patient reports having gradual onset of pain. Patient noted to be able to ambulate normally. Is currently smoking approximately pack per day. She denies any recent trauma. She reports having increased pain to her left shoulder as well. She denies any fevers. Allergies: Coded Allergies: No Known Allergies (Unverified , 12/27/18) Patient History Last Menstrual Period: menopause Reviewed Nursing Documentation: PMH: Agreed; PSxH: Agreed Nursing Documentation-PMH Past Medical History: No History, Except For Hx Cardiac Problems: No Hx Hypertension: Yes Hx Pacemaker: No Hx Asthma: No Hx COPD: No Hx Diabetes: Yes Hx Cancer: No Hx Dialysis: No Hx Neurological Problems: No - Lower back surgery 06/2017 Hx Cerebrovascular Accident: No Hx Seizures: No Review of Systems All Other Systems: negative except mentioned in HPI Physical Exam Vital Signs Date Time Temp Pulse Resp B/P (MAP) Pulse Ox O2 Delivery O2 Flow Rate FiO2 12/27/18 07:23 98.1 75 15 146/82 100 Room Air Sp02 EP Interpretation: reviewed, normal General Appearance: normal inspection, well appearing, no apparent distress, alert, GCS 15, non-toxic Head: atraumatic ENT: normal ENT inspection, hearing grossly normal, normal voice Neck: normal inspection, full range of motion, supple, no bony tend Respiratory: normal inspection, lungs clear, normal breath sounds, no respiratory distress, no retraction, no wheezing Cardiovascular #1: regular rate, rhythm, no edema Gastrointestinal: normal inspection, normal bowel sounds, non tender, soft, no guarding, no hernia Genitourinary: no CVA tenderness Musculoskeletal: normal inspection, back normal, normal range of motion Neurologic: normal inspection, alert, oriented x3, responsive, furrier apprentice III-XII nml as tested, speech normal Psychiatric: normal inspection, judgement/insight normal, mood/affect normal Skin: normal inspection, normal color, no rash Medical Decision Making Diagnostic Impression: Primary Impression: Arthritis ER Course Patient presented for hip pain. Differential diagnosis include was not limited to arthritis, fracture, avascular necrosis, septic joint among others. Patient has a benign exam and does not appear to require any laboratory testing at this time. X-ray imaging of the hip 2 views read by radiology showed normal bony alignment without evident fracture. Patient was noted to be ambulatory. This appears to be in exacerbation of the patient's arthritis pain. Patient was advised to follow-up with her primary care physician. She is advised to return if she had any fever or worsening pain or other concerns. Last Vital Signs Date Time Temp Pulse Resp B/P (MAP) Pulse Ox O2 Delivery O2 Flow Rate FiO2 12/27/18 07:23 98.1 75 15 146/82 100 Room Air Status: improved Disposition: HOME, SELF-CARE Condition: Stable Scripts Ibuprofen* (MOTRIN*) 400 Mg Tablet 400 MG ORAL Q8H, #30 TAB 0 Refills Prov: Festus Peng MD 12/27/18 Lidocaine (Lidocaine) 1 Each Adh..patch 5 % TP DAILY, #30 PATCH Prov: Festus Peng MD 12/27/18 Festus Peng MD Dec 27, 2018 07:36
--- NOTE | 2018-12-27 08:30 | NUR ---
ED Nurse Note: x-ray called.
[2018-12-27] MEDS ORDERED: IBUPROFEN400 MG ORAL (09:18)
[2018-12-27] MEDS ORDERED: LIDOCAINE700 M1 TP (09:18)
[2018-12-27 09:24] VITALS: BP 138/78
--- NOTE | 2018-12-27 09:25 | NUR ---
ER DISCHARGE NOTE: Patient is cleared to be discharged per ERMD, pt is aox4, on room air, with stable vital signs. pt was given dc and prescription instructions, pt was able to verbalize understanding, pt id band removed. pt is able to ambulate with steady gait. pt took all belongings.
--- NOTE | 2018-12-27 10:12 | Diagnostic Imaging Report ---
Indication: Right hip pain for one week Technique: 2 views of the hip Comparison: none Findings: No acute fractures. No dislocations. Joint spaces are preserved. Normal mineralization. Lumbar spinal fusion hardware is noted Impression: No acute process
== END 2018-12-27 09:25 | disposition home or self-care (01) ==
LOC: EMR 07:35
DX: M16.11 Unilateral primary osteoarthritis, right hip (principal); I10 Essential (primary) hypertension; E11.9 Type 2 diabetes mellitus without complications
CPT/HCPCS: 99283

== ENCOUNTER 2019-03-30 18:14 | Emergency (ER) | payer MEDICARE, OTHER ==
[~2019-03-30] VITALS: Ht 162.6 cm; Wt 78.5 kg
[~2019-03-30 18:14] MED LIST changes: +IBUPROFEN400 MG ORAL
--- NOTE | 2019-03-30 18:42 | NUR ---
ED Nurse Note: PT WALKED IN TO ER TODAY FROM HOME. AOX4. PT C/O LOWER BACK PAIN AND HEADACHE X 2 DAYS AGO, PAIN 10/10. PT DENIES ANY RECENT INJURY OR TRAUMA. GAIT STEADY. PT DENIES ANY NUMBNESS OR TINGLING.
[2019-03-30 18:44] VITALS: BP 178/82
--- NOTE | 2019-03-30 18:45 | NUR ---
ED Nurse Note: BP ELEVATED. BILL TYSON NOTIFIED.
--- NOTE | 2019-03-30 18:55 | NUR ---
ED Nurse Note: REPORT GIVEN TO ORACIO QUIROS.
[2019-03-30] MEDS ORDERED: HYDROcodone/Acetamin 5/325 tab ORAL ONE (19:00)
--- NOTE | 2019-03-30 19:04 | Emergency Room Report ---
History of Present Illness General Chief Complaint: Pain Source: Patient Present Illness HPI 58-year-old female presents to the emergency department complaining of 10 out of 10 in severity pain in the low back, left hand and right hip x1.5 days. Patient states that she is having exacerbation of her chronic pain that she is out of her pain medication. Patient denies trauma or fall, fevers or chills. She reports intermittent elevated BP readings and states that usually her pain will raise her blood pressure. Patient also is reporting 3 out of 10 in severity dull constant headache. Patient denies nausea, vomiting, neck pain or stiffness, or photophobia. Patient denies paresthesias or weakness. Denies changes in character to her chronic pain symptoms. The patient states that she has an appointment with her chronic pain management doctor for refill on the . Pt. denies recent spinal procedures or hx of ca. Allergies: Coded Allergies: No Known Allergies (Unverified , 12/27/18) Patient History Past Medical History: see triage record Past Surgical History: none Pertinent Family History: none Now: No Reviewed Nursing Documentation: PMH: Agreed; PSxH: Agreed Nursing Documentation-PMH Past Medical History: No History, Except For Hx Cardiac Problems: No Hx Hypertension: Yes Hx Pacemaker: No Hx Asthma: No Hx COPD: No Hx Diabetes: Yes Hx Cancer: No Hx Dialysis: No Hx Neurological Problems: No - Lower back surgery 06/2017 Hx Cerebrovascular Accident: No Hx Seizures: No Review of Systems All Other Systems: negative except mentioned in HPI Physical Exam Vital Signs Date Time Temp Pulse Resp B/P (MAP) Pulse Ox O2 Delivery O2 Flow Rate FiO2 03/30/19 18:22 98.4 71 14 180/84 (116) 99 Room Air Sp02 EP Interpretation: reviewed, normal General Appearance: alert, GCS 15, non-toxic, mild distress Head: normocephalic, atraumatic Eyes: bilateral eye normal inspection, bilateral eye PERRL ENT: hearing grossly normal, normal voice Neck: full range of motion, no bony tend Respiratory: chest non-tender, lungs clear, normal breath sounds, speaking full sentences Cardiovascular #1: regular rate, rhythm Gastrointestinal: normal bowel sounds, non tender, soft Rectal: deferred Genitourinary: normal inspection, no CVA tenderness Musculoskeletal: gait/station normal, normal range of motion, tender - TTP to the lumbar paraspinal musculature bilaterally, the thenar aspect of the left hand, and the anterior right hip. no obvious deformity. Neurologic: alert, oriented x3, responsive, motor strength/tone normal, sensory intact, normal gait, speech normal, grossly normal Psychiatric: judgement/insight normal Medical Decision Making PA Attestation Dr. Trujillo is my supervising Physician whom patient management has been discussed with. Diagnostic Impression: Primary Impression: Exacerbation of chronic back pain Additional Impressions: Medication refill UTI (urinary tract infection) Qualified Codes: N30.01 - Acute cystitis with hematuria ER Course 58-year-old female presents to the emergency department complaining of 10 out of 10 in severity pain in the low back, left hand and right hip x1.5 days. Patient states that she is having exacerbation of her chronic pain that she is out of her pain medication. Patient denies trauma or fall, fevers or chills. She reports intermittent elevated BP readings and states that usually her pain will raise her blood pressure. Patient also is reporting 3 out of 10 in severity dull constant headache. Patient denies nausea, vomiting, neck pain or stiffness, or photophobia. Patient denies paresthesias or weakness. Denies changes in character to her chronic pain symptoms. The patient states that she has an appointment with her chronic pain management doctor for refill on the . Ddx considered but are not limited to: drug seeking, OD, non-compliance with medications, exacerbation of chronic pain, UTI, GARCIA, HTN urgency just to name a few. Vital signs: are WNL, pt. is afebrile H&PE are most consistent with need for medication refill. ORDERS: -UA: POSITIVE for UTI ED INTERVENTIONS: -Phelan PO -I do not identify an emergent condition at this time. With current presentation , pt. is stable for close outpatient follow up and conservative treatment. D/ w pt. to return promptly to ED with worsening or new symptoms.- Pt. verbalizes' understanding and agreement with proposed treatment plan.proposed treatment plan. DISCHARGE: At this time pt. is stable for d/c to home. Will provide printed patient care instructions, and any necessary prescriptions. Care plan and follow up instructions have been discussed with the patient prior to discharge. Labs Test 03/30/19 19:10 Urine Color Pale yellow Urine Appearance Cloudy Urine pH 6.5 (4.5-8.0) Urine Specific [place] 1.010 (1.005-1.035) Urine Protein Negative (NEGATIVE) Urine Glucose (UA) Negative (NEGATIVE) Urine Ketones Negative (NEGATIVE) Urine Blood 1+ (NEGATIVE) Urine Nitrite Positive (NEGATIVE) Urine Bilirubin Negative (NEGATIVE) Urine Urobilinogen Normal MG/DL (0.0-1.0) Urine Leukocyte Esterase 3+ (NEGATIVE) Urine RBC 2-4 /HPF (0 - 2) Urine WBC 40-60 /HPF (0 - 2) Urine Squamous Epithelial Cells Moderate /LPF (NONE/OCC) Urine Bacteria Many /HPF (NONE) Last Vital Signs Date Time Temp Pulse Resp B/P (MAP) Pulse Ox O2 Delivery O2 Flow Rate FiO2 03/30/19 18:44 74 16 Room Air 03/30/19 18:44 98.2 178/82 100 Status: improved Disposition: HOME, SELF-CARE Condition: Stable Scripts Acetaminophen With Codeine (T#3) (TYLENOL #3 TAB*) Y Tab 1 TAB ORAL Q6H PRN for For Pain, #12 TAB Prov: Gin Gilbert 03/30/19 Nitrofurantoin Monohyd/M-Cryst* (MACROBID 100 MG*) 100 Mg Capsule 100 MG ORAL EVERY 12 HOURS for 5 Days, #10 CAP Prov: Gin Gilbert 03/30/19 Patient Instructions: Medicine Refill at the Emergency Department Additional Instructions: Take medications as directed. Follow up with a Primary Care Provider in 3-5 days, even if your symptoms have resolved. Return sooner to ED if new symptoms occur, or current symptoms become worse. Do not drink alcohol, drive, or operate heavy machinery while taking Tylenol #3 as this may cause drowsiness. - Please note that this Emergency Department Report was dictated using [employer] technology software, occasionally this can lead to erroneous entry secondary to interpretation by the dictation equipment. Gin Gilbert Mar 30, 2019 19:04
[2019-03-30 19:28] LABS: APPEARANCE,URINE CLOUDY; BILIRUBIN, URINE NEGATIVE (NEGATIVE); COLOR,URINE PALE YELLOW; GLUCOSE, URINE (UA) NEGATIVE (NEGATIVE); KETONES,URINE NEGATIVE (NEGATIVE); LEUKOCYTE ESTERASE ,URINE 3+ (NEGATIVE); NITRITE,URINE POSITIVE (NEGATIVE); PH,URINE 6.5 (4.5-8.0); PROTEIN,URINE NEGATIVE (NEGATIVE); UROBILINOGEN,URINE NORMAL MG/DL (0.0-1.0)
[2019-03-30] MEDS ORDERED: NITROFURANTOIN100 M2 ORAL (19:35)
[2019-03-30] MEDS ORDERED: ACETAMINOPHEN-1 EAC1 ORAL (19:35)
[2019-03-30 19:54] VITALS: BP 178/82
--- NOTE | 2019-03-30 19:55 | NUR ---
ED Nurse Note: Pt cleared by health care Provider for discharge. DC instructions/prescription was given and explained to pt and verbalized understanding of teachings. All medical deviecs such as ID band removed. Pt is AAO x4, ambulatory and left with all personal belongings.
== END 2019-03-30 20:00 | disposition home or self-care (01) ==
LOC: EMR 19:54
DX: M54.5 Low back pain (principal); G89.29 Other chronic pain; Z76.0 Encounter for issue of repeat prescription; N30.01 Acute cystitis with hematuria; I10 Essential (primary) hypertension; E11.9 Type 2 diabetes mellitus without complications; M25.542 Pain in joints of left hand; M25.551 Pain in right hip
CPT/HCPCS: 81003; 87086; 99283

== ENCOUNTER 2019-04-29 19:04 | Emergency (ER) | payer MEDICARE ==
[~2019-04-29] VITALS: Ht 162.6 cm; Wt 78.9 kg
[2019-04-29 19:24] VITALS: BP 153/78
--- NOTE | 2019-04-29 19:24 | NUR ---
ER Nurse Note: Pt came from home c/o back pain for a few days. Pt stated this is a chronic pain but got worse. Pt stated 10/ pain. Pt stated she has an appointment with her pain doctor on 05/04 but could not tolerate the pain. Pt ambulatory, no skin breakdown. No signs of acute distress. Will monalisa noble.
--- NOTE | 2019-04-29 19:38 | Emergency Room Report ---
History of Present Illness General Chief Complaint: Pain Source: Patient Present Illness HPI 58 year old female medical history of back surgery, presents with chronic pain times years, patient states she has sharp achy pain aggravated with movement in the right lower back, no dysuria, no fever no chills, no chest pain, no shortness of breath, no bowel bladder incontinence/retention, patient is requesting pain medication patient describes the pain as severe, alleviated with rest and pain pills Allergies: Coded Allergies: No Known Allergies (Unverified , 12/27/18) Patient History Past Medical History: see triage record Last Menstrual Period: n/a Reviewed Nursing Documentation: PMH: Agreed; PSxH: Agreed Nursing Documentation-PMH Past Medical History: No History, Except For Hx Cardiac Problems: No Hx Hypertension: Yes Hx Pacemaker: No Hx Asthma: No Hx COPD: No Hx Diabetes: Yes Hx Cancer: No Hx Dialysis: No Hx Neurological Problems: No - Lower back surgery 06/2017 Hx Cerebrovascular Accident: No Hx Seizures: No Review of Systems All Other Systems: negative except mentioned in HPI Physical Exam Vital Signs Date Time Temp Pulse Resp B/P (MAP) Pulse Ox O2 Delivery O2 Flow Rate FiO2 04/29/19 19:13 98.1 62 18 153/78 (103) 98 Room Air Sp02 EP Interpretation: reviewed, normal General Appearance: well appearing, no apparent distress, alert Head: normocephalic, atraumatic Eyes: bilateral eye PERRL, bilateral eye EOMI ENT: uvula midline, moist mucus membranes Neck: supple, thyroid normal, supple/symm/no masses Respiratory: lungs clear, no respiratory distress, no retraction, no accessory muscle use Cardiovascular #1: normal peripheral pulses, regular rate, rhythm, no edema, no gallop, no murmur Gastrointestinal: non tender, soft, no guarding, no rebound Musculoskeletal: normal inspection, other - Right lower back: Tenderness to palpation along the muscle, no midline tenderness, no step-offs Neurologic: alert, oriented x3 Psychiatric: mood/affect normal Skin: no rash, warm/dry Medical Decision Making Diagnostic Impression: Primary Impression: Back pain ER Course Patient with chronic back pain a cures report was ran, patient counseled that she cannot get another prescription from here, she will require her chronic pain management doctor to provide her with a prescription. Patient counseled, will provide pain medication here, disposition home with return precautions The patient presents with acute onset of back pain after XXX. Clinically this patient can be ruled out for serious pathology given there is a completely normal neurological exam, no history of IV drug use, and no history of bowel or bladder incontinence, no perianal numbness/tingling, no constipation or urinary retention. Once the patient's pain was adequately controlled, the patient was able to ambulate and be discharged in stable condition with anticipatory guidance provided. Last Vital Signs Date Time Temp Pulse Resp B/P (MAP) Pulse Ox O2 Delivery O2 Flow Rate FiO2 04/29/19 19:24 98.1 78 18 153/78 98 Room Air Disposition: HOME, SELF-CARE Condition: Stable Referrals: [facility] Kailash Darling. [facility] Patient Instructions: Back Pain, Adult, [id number] Additional Instructions: The patient was provided with discharge instructions, notified to follow-up with a primary care doctor and or specialist in the next 24-48 hours, and to return to the ED if they have worsening of their symptoms. Please note that this report is being documented using [employer] technology. This can lead to erroneous entry secondary to incorrect interpretation by the dictating instrument. Liang Burk MD Apr 29, 2019 19:38
[2019-04-29 19:45] VITALS: BP 153/78
[2019-04-29] MEDS ORDERED: HYDROcodone/Acetamin 5/325 tab ORAL ONE (19:45)
[2019-04-29] MEDS ORDERED: oxyCODONE HCL/Acetaminophen 5/325mg ORAL ONE (19:45)
--- NOTE | 2019-04-29 19:45 | NUR ---
ER Nurse Note: Pt seen, treated, medically cleared for discharge by ERMD. Discharge instuctions given with repeat verbalization by pt. Emphasized to follow up with primay care provider. All orders completed per ERMD orders. Pt a&ox4, VSS, no signs of distress. ID band removed. All questions answered per pt's questions. Pt left with all belongings, left with own transportation.
== END 2019-04-29 19:45 | disposition home or self-care (01) ==
LOC: EMR 19:40
DX: M54.5 Low back pain (principal); I10 Essential (primary) hypertension; E11.9 Type 2 diabetes mellitus without complications
CPT/HCPCS: 99282

== ENCOUNTER 2019-08-30 18:26 | Emergency (ER) | payer MEDICARE ==
[~2019-08-30] VITALS: Ht 162.6 cm; Wt 73.9 kg
[2019-08-30 18:44] VITALS: BP 153/75
--- NOTE | 2019-08-30 18:47 | NUR ---
ED Nurse Note: Pt ambulated into ED c/o flu like symptoms for the past three days. Pt states she has a headache, body aches and cough with yellow sputum. Pt states she has been taking tylenol with no relief of symptoms. pt has hx of htn, and DM. Pt notes she takes hydralazine for HTN and levemir and metformin for DM. Pt c/o 10 generalized body aches at this time. Pt is alert and oriented x4, ambulatory with steady gait, breathing is normal and unlabored, speaking in full sentences. Pt connected to sales store checker and placed in gown. Safety measures in place. Pt states she lives at [facility]. Will continue to monitor.
--- NOTE | 2019-08-30 18:58 | Emergency Room Report ---
History of Present Illness General Chief Complaint: Flu Like Symptoms Source: Patient Present Illness HPI Disclaimer: Please note that this report is being documented using [employer] technology. This can lead to erroneous entry secondary to incorrect interpretation by the dictating instrument. HPI: 59-year-old female history diabetes presents for evaluation of myalgias and cough. Symptoms present proximal me 3 days. Reports body wide aches and pains, productive cough with yellow phlegm, subjective fevers and chills, nasal congestion and sore throat. Has been using Tylenol Cold and flu at home without significant improvement in her symptoms. Continues to eat and drink. She did have some diarrhea a few days ago but that seems to have resolved. Denies dysuria or hematuria. PMH: Diabetes, hypertension PSH: Reviewed Allergies: Denies Social Hx: Current smoker Allergies: Coded Allergies: No Known Allergies (Unverified , 12/27/18) Patient History Last Menstrual Period: 20 yrs ago Nursing Documentation-PMH Past Medical History: No History, Except For Hx Cardiac Problems: No - Tendonitis, back sx Hx Hypertension: Yes Hx Pacemaker: No Hx Asthma: Yes Hx COPD: No Hx Diabetes: Yes Hx Cancer: No Hx Dialysis: No Hx Neurological Problems: No - Lower back surgery 06/2017 Hx Cerebrovascular Accident: No Hx Seizures: No Physical Exam Vital Signs Date Time Temp Pulse Resp B/P (MAP) Pulse Ox O2 Delivery O2 Flow Rate FiO2 08/30/19 18:33 98.8 68 17 153/75 (101) 98 Room Air General: Awake and alert, no acute distress HEENT: NC/AT. EOMI. sinus tenderness, moist mucous membranes Cardiovascular: RRR. S1 and S2 normal. No murmur appreciated Resp: Normal work of breathing. No cough, wheezing or crackles appreciated Abdomen: Abdomen is soft, nondistended. Nontender Skin: Intact. No abrasions, laceration or rash over the exposed skin MSK: Normal tone and bulk. Moving all extremities. No obvious deformity. Neuro: Awake and alert. Mentating appropriately. Medical Decision Making Diagnostic Impression: Primary Impression: Respiratory infection ER Course 59-year-old female presents for evaluation of 3 days nasal congestion, sore throat, productive cough and subjective fever chills with myalgias at home. Differential includes was not limited to viral syndrome, influenza, pneumonia, pneumothorax, URI. Patient did not receive a flu shot this year. Will check swabs, basic labs, give Toradol and obtain a chest x-ray to rule out pneumonia. Laboratory Tests Test 08/30/19 19:16 White Blood Count 7.2 K/UL (4.8-10.8) Red Blood Count 3.98 M/UL (4.20-5.40) L Hemoglobin 11.6 G/DL (12.0-16.0) L Hematocrit 32.9 % (37.0-47.0) L Mean Corpuscular Volume 83 FL (80-99) Mean Corpuscular Hemoglobin 29.2 PG (27.0-31.0) Mean Corpuscular Hemoglobin Concent 35.3 G/DL (32.0-36.0) Red Cell Distribution Width 10.8 % (11.6-14.8) L Platelet Count 277 K/UL (150-450) Mean Platelet Volume 5.4 FL (6.5-10.1) L Neutrophils (%) (Auto) 47.0 % (45.0-75.0) Lymphocytes (%) (Auto) 39.6 % (20.0-45.0) Monocytes (%) (Auto) 9.6 % (1.0-10.0) Eosinophils (%) (Auto) 2.9 % (0.0-3.0) Basophils (%) (Auto) 1.0 % (0.0-2.0) Sodium Level 145 MMOL/L (136-145) Potassium Level 3.7 MMOL/L (3.5-5.1) Chloride Level 110 MMOL/L (98-107) H Carbon Dioxide Level 33 MMOL/L (21-32) H Anion Gap 3 mmol/L (5-15) L Blood Urea Nitrogen 6 mg/dL (7-18) L Creatinine 0.7 MG/DL (0.55-1.30) Estimate Glomerular Filtration Rate > 60 mL/min (>60) Glucose Level 116 MG/DL (74-106) H Calcium Level 8.6 MG/DL (8.5-10.1) Chest X-Ray Diagnostic Results Chest X-Ray Diagnostic Results : Chest X-Ray Ordered: Yes # of Views/Limited/Complete: 1 View Indication: Shortness of Breath Interpretation: no consolidation, no effusion, no pneumothorax Impression: No acute disease Electronically Signed by: Electronically signed by Dr. Angelo Aviles Reevaluation Time: 19:45 Last Vital Signs Date Time Temp Pulse Resp B/P (MAP) Pulse Ox O2 Delivery O2 Flow Rate FiO2 08/30/19 18:33 98.8 68 17 153/75 (101) 98 Room Air Reevaluation Impression No evidence of infiltrate on exam. May be a viral syndrome. Labs otherwise within normal limits. Patient was treated with Toradol. Vital signs remained stable. She will be treated as an outpatient for a viral respiratory infection. Given return precautions and instructed to follow-up with her PMD. Understands and agrees with the treatment plan will be discharged home. Disposition: HOME, SELF-CARE Condition: Stable Angelo Aviles MD Aug 30, 2019 18:58
[2019-08-30] MEDS ORDERED: Ketorolac 30mg Inj IV ONE (19:00)
--- NOTE | 2019-08-30 19:23 | NUR ---
HAND-OFF: Report given to ORACIO Fierro. Endorsed care.
[2019-08-30 19:27] LABS: EOSINOPHILS % (AUTO) 2.9 % (0.0-3.0); HEMATOCRIT 32.9 % (37.0-47.0); HEMOGLOBIN 11.6 G/DL (12.0-16.0); LYMPHOCYTES % (AUTO) 39.6 % (20.0-45.0); MEAN CORPUSCULAR VOLUME 83 FL (80-99); MONOCYTES % (AUTO) 9.6 % (1.0-10.0); PLATELET COUNT 277 K/UL (150-450); RED BLOOD COUNT 3.98 M/UL (4.20-5.40); RED CELL DISTRIBUTION WIDTH 10.8 % (11.6-14.8); WHITE BLOOD COUNT 7.2 K/UL (4.8-10.8)
[2019-08-30 19:41] LABS: ANION GAP 3 mmol/L (5-15); BLOOD UREA NITROGEN 6 mg/dL (7-18); CALCIUM 8.6 MG/DL (8.5-10.1); CARBON DIOXIDE 33 MMOL/L (21-32); CHLORIDE 110 MMOL/L (98-107); CREATININE 0.7 MG/DL (0.55-1.30); POTASSIUM 3.7 MMOL/L (3.5-5.1); SODIUM 145 MMOL/L (136-145)
--- NOTE | 2019-08-30 20:50 | NUR ---
ER DISCHARGE NOTE: Patient is cleared to be discharged per ERMD, pt is aox4, on room air, with stable vital signs. pt was given dc and prescription instructions, pt was able to verbalize understanding, pt id band and iv site removed without complications. pt is able to ambulate with steady gait. pt took all belongings.
[2019-08-30 20:51] VITALS: BP 153/75
--- NOTE | 2019-08-31 10:36 | Diagnostic Imaging Report ---
Indication: Cough Comparison: 01/28/2016 A single view chest radiograph was obtained. Findings: Cardiomediastinal appearance is within normal limits for age. The lungs are clear. Pulmonary vascularity is appropriate. The diaphragmatic contour is smooth and costophrenic angles are sharp. No pleural effusions are identified. The bones are unremarkable. Impression: No acute findings
== END 2019-08-30 20:50 | disposition home or self-care (01) ==
LOC: EMR 19:32
DX: J06.9 Acute upper respiratory infection, unspecified (principal); M79.10 Myalgia, unspecified site; I10 Essential (primary) hypertension; E11.9 Type 2 diabetes mellitus without complications
CPT/HCPCS: 36415; 71045; 80048; 85025; 86710; 96374; 99284; J1885

== ENCOUNTER 2019-11-18 12:45 | Emergency (ER) | payer MEDICARE ==
[~2019-11-18] VITALS: Ht 162.6 cm; Wt 78.0 kg
[~2019-11-18 12:45] MED LIST changes: +DICYCLOMINE HCL10 MG ORAL; +OMEPRAZOLE20 M3 ORAL; +ZOFRAN4 M1 ORAL
[2019-11-18 12:52] VITALS: BP 154/84
[2019-11-18] MEDS ORDERED: Morphine Sulfate 4mg/ml Inj (IV USE ONLY) IVP ONE (13:00)
--- NOTE | 2019-11-18 13:06 | NUR ---
ED Nurse Note: Pt. is aaox4. ambulatory. wealked into er from home. pt. c/o left abdominal pain radiating to her back for 1 month with nausea, hx of pancreatitis.
--- NOTE | 2019-11-18 13:16 | Emergency Room Report ---
History of Present Illness General Chief Complaint: Abdominal Pain Source: Patient Present Illness HPI 59-year-old female presents ED for evaluation of abdominal pain. Pain is dull, 7 out of 10, radiating to the back. Notes nausea, denies vomiting. History of pancreatitis. Denies alcohol use. Denies drug use. Denies chest pain or shortness of breath. Denies she is having on and off diarrhea as well. Was seen here at the end of September for similar story. Had work-up including labs and CT. Was subsequently discharged. No other aggravating relieving factors. Denies any other associated symptoms Allergies: Coded Allergies: No Known Allergies (Unverified , 12/27/18) Patient History Past Medical History: DM, HTN, asthma Past Surgical History: none Pertinent Family History: none Social History: Denies: smoking, alcohol use, drug use Now: No Immunizations: UTD Reviewed Nursing Documentation: PMH: Agreed; PSxH: Agreed Nursing Documentation-PMH Past Medical History: No History, Except For Hx Cardiac Problems: No - Tendonitis, breast reduction Hx Hypertension: Yes Hx Pacemaker: No Hx Asthma: Yes Hx COPD: No Hx Diabetes: Yes Hx Cancer: No Hx Dialysis: No Hx Neurological Problems: No - Lower back surgery 06/2017 Hx Cerebrovascular Accident: No Hx Seizures: No Review of Systems All Other Systems: negative except mentioned in HPI Physical Exam Vital Signs Date Time Temp Pulse Resp B/P (MAP) Pulse Ox O2 Delivery O2 Flow Rate FiO2 11/18/19 12:52 70 20 Room Air 11/18/19 12:52 98.2 154/84 (107) 98 Sp02 EP Interpretation: reviewed, normal General Appearance: no apparent distress, alert, GCS 15, non-toxic Head: normocephalic, atraumatic Eyes: bilateral eye normal inspection, bilateral eye PERRL ENT: hearing grossly normal, normal pharynx, no angioedema, normal voice Neck: full range of motion, supple/symm/no masses Respiratory: chest non-tender, lungs clear, normal breath sounds, speaking full sentences Cardiovascular #1: regular rate, rhythm, no edema Cardiovascular #2: 2+ carotid (R), 2+ carotid (L), 2+ radial (R), 2+ radial (L) , 2+ dorsalis pedis (R), 2+ dorsalis pedis (L) Gastrointestinal: normal bowel sounds, soft, non-distended, no guarding, no rebound, tenderness Rectal: deferred Genitourinary: normal inspection, no CVA tenderness Musculoskeletal: back normal, normal range of motion, gait/station normal, non- tender Neurologic: alert, motor strength/tone normal, oriented x3, sensory intact, responsive, speech normal Psychiatric: judgement/insight normal, memory normal, mood/affect normal, no suicidal/homicidal ideation Reflexes: 3+ bicep (R), 3+ bicep (L), 3+ tricep (R), 3+ tricep (L), 3+ knee (R) , 3+ knee (L) Skin: no rash Lymphatic: no adenopathy Medical Decision Making Diagnostic Impression: Primary Impression: Pancreatitis Qualified Codes: K85.90 - Acute pancreatitis without necrosis or infection, unspecified ER Course Hospital Course 59-year-old F presents to ED with epigastric pain. h/o pancreatitis differential diagnosis: gastritis, pancreatitis, cholecystits Clinical course Patient placed on stretcher. On cardiac care nurse. After initial history and physical I ordered labs, IV fluids, meds Labs - no leukocytosis, no electrolyte abnormalities, LFTs normal, lipase 440 I reviewed EMR. Patient was seen here about 3 weeks ago for similar presentation. Had work-up including labs and CT. Lipase was similar. CT was unremarkable. I discussed findings with patient. I see no reason to repeat CT at this time. Patient agrees. Will discharge to home. Recommend GI evaluation as outpatient. I will provide referrals I feel this is a highly complex case requiring extensive working including EKG/ Rhythm strip, Xray/CT/US, Blood/urine lab work, repeat exams while in ED, and administration of strong opiates/narcotics for pain control, admission to hospital or close patient follow up. Diagnosis - pancreatitis Stable and discharged to home with prescriptions for Zantac, zofran, tylenol # 3. Followup with PMD. Return to ED if symptoms recur or worsen Labs Test 11/18/19 13:20 White Blood Count 6.7 K/UL (4.8-10.8) Red Blood Count 4.07 M/UL (4.20-5.40) Hemoglobin 11.8 G/DL (12.0-16.0) Hematocrit 34.3 % (37.0-47.0) Mean Corpuscular Volume 84 FL (80-99) Mean Corpuscular Hemoglobin 29.1 PG (27.0-31.0) Mean Corpuscular Hemoglobin Concent 34.5 G/DL (32.0-36.0) Red Cell Distribution Width 10.9 % (11.6-14.8) Platelet Count 280 K/UL (150-450) Mean Platelet Volume 6.3 FL (6.5-10.1) Neutrophils (%) (Auto) 58.2 % (45.0-75.0) Lymphocytes (%) (Auto) 31.5 % (20.0-45.0) Monocytes (%) (Auto) 6.9 % (1.0-10.0) Eosinophils (%) (Auto) 2.2 % (0.0-3.0) Basophils (%) (Auto) 1.2 % (0.0-2.0) Urine Color Pale yellow Urine Appearance Clear Urine pH 7 (4.5-8.0) Urine Specific [place] 1.010 (1.005-1.035) Urine Protein Negative (NEGATIVE) Urine Glucose (UA) Negative (NEGATIVE) Urine Ketones Negative (NEGATIVE) Urine Blood Negative (NEGATIVE) Urine Nitrite Negative (NEGATIVE) Urine Bilirubin Negative (NEGATIVE) Urine Urobilinogen Normal MG/DL (0.0-1.0) Urine Leukocyte Esterase Negative (NEGATIVE) Sodium Level 143 MMOL/L (136-145) Potassium Level 4.5 MMOL/L (3.5-5.1) Chloride Level 105 MMOL/L (98-107) Carbon Dioxide Level 29 MMOL/L (21-32) Anion Gap 9 mmol/L (5-15) Blood Urea Nitrogen 7 mg/dL (7-18) Creatinine 0.6 MG/DL (0.55-1.30) Estimat Glomerular Filtration Rate > 60 mL/min (>60) Glucose Level 165 MG/DL (74-106) Calcium Level 9.6 MG/DL (8.5-10.1) Total Bilirubin 0.4 MG/DL (0.2-1.0) Aspartate Amino Transf (AST/SGOT) 11 U/L (15-37) Alanine Aminotransferase (ALT/SGPT) 17 U/L (12-78) Alkaline Phosphatase 107 U/L (46-116) Total Protein 7.5 G/DL (6.4-8.2) Albumin 3.6 G/DL (3.4-5.0) Globulin 3.9 g/dL Albumin/Globulin Ratio 0.9 (1.0-2.7) Lipase 440 U/L (73-393) Last Vital Signs Date Time Temp Pulse Resp B/P (MAP) Pulse Ox O2 Delivery O2 Flow Rate FiO2 11/18/19 12:52 98.2 70 20 154/84 98 Room Air Status: improved Disposition: HOME, SELF-CARE Condition: Stable Scripts Ranitidine Hcl* (ZANTAC*) 150 Mg Tablet 150 MG ORAL TWICE A DAY, #30 TAB Prov: Henry Trujillo MD 11/18/19 Ondansetron Odt* (ZOFRAN ODT*) 4 Mg Tab.rapdis 4 MG BC EVERY 6 HOURS PRN for Nausea & Vomiting, #10 TAB 0 Refills Prov: Henry Trujillo MD 11/18/19 Acetaminophen With Codeine (T#3) (TYLENOL #3 TAB*) Y Tab 1 TAB ORAL Q8H PRN for For Pain, #12 TAB Prov: Henry Trujillo MD 11/18/19 Henry Trujillo MD Nov 18, 2019 13:16
--- NOTE | 2019-11-18 13:19 | NUR ---
ED Nurse Note: Urine sample obtained and sent to lab.
--- NOTE | 2019-11-18 13:43 | NUR ---
Blood collected and sent to lab. 20 g IV started in right AC.
[2019-11-18 13:53] LABS: APPEARANCE,URINE CLEAR; BILIRUBIN, URINE NEGATIVE (NEGATIVE); COLOR,URINE PALE YELLOW; GLUCOSE, URINE (UA) NEGATIVE (NEGATIVE); KETONES,URINE NEGATIVE (NEGATIVE); LEUKOCYTE ESTERASE ,URINE NEGATIVE (NEGATIVE); NITRITE,URINE NEGATIVE (NEGATIVE); PH,URINE 7 (4.5-8.0); PROTEIN,URINE NEGATIVE (NEGATIVE); UROBILINOGEN,URINE NORMAL MG/DL (0.0-1.0)
[2019-11-18 13:54] LABS: BASOPHILS % (AUTO) 1.2 % (0.0-2.0); EOSINOPHILS % (AUTO) 2.2 % (0.0-3.0); HEMATOCRIT 34.3 % (37.0-47.0); HEMOGLOBIN 11.8 G/DL (12.0-16.0); LYMPHOCYTES % (AUTO) 31.5 % (20.0-45.0); MEAN CORPUSCULAR VOLUME 84 FL (80-99); MONOCYTES % (AUTO) 6.9 % (1.0-10.0); NEUTROPHILS % (AUTO) 58.2 % (45.0-75.0); PLATELET COUNT 280 K/UL (150-450); RED BLOOD COUNT 4.07 M/UL (4.20-5.40); RED CELL DISTRIBUTION WIDTH 10.9 % (11.6-14.8); WHITE BLOOD COUNT 6.7 K/UL (4.8-10.8)
[2019-11-18 14:07] LABS: ANION GAP 9 mmol/L (5-15); BLOOD UREA NITROGEN 7 mg/dL (7-18); CALCIUM 9.6 MG/DL (8.5-10.1); CARBON DIOXIDE 29 MMOL/L (21-32); CHLORIDE 105 MMOL/L (98-107); CREATININE 0.6 MG/DL (0.55-1.30); POTASSIUM 4.5 MMOL/L (3.5-5.1); SODIUM 143 MMOL/L (136-145)
[2019-11-18 14:11] LABS: ALANINE AMINOTRANSFERASE 17 U/L (12-78); ALBUMIN 3.6 G/DL (3.4-5.0); ALBUMIN/GLOBULIN RATIO 0.9 (1.0-2.7); ALKALINE PHOSPHATASE 107 U/L (46-116); ASPARTATE AMINO TRANSFERASE 11 U/L (15-37); BILIRUBIN,TOTAL 0.4 MG/DL (0.2-1.0)
[2019-11-18] MEDS ORDERED: ONDANSETRON ODT4 MG BC (14:44)
[2019-11-18] MEDS ORDERED: RANITIDINE HCL150 MG ORAL (14:44)
[2019-11-18] MEDS ORDERED: ACETAMINOPHEN-1 EAC1 ORAL (14:44)
[2019-11-18 14:53] VITALS: BP 154/84
--- NOTE | 2019-11-18 14:56 | NUR ---
ED Nurse Note: Patient cleared for DC by Dr Trujillo. Patient AxO x 4, no s/s of acute distress. ID band removed. Patient walks with steady gait, took all belongings.
== END 2019-11-18 14:53 | disposition home or self-care (01) ==
LOC: EMR 14:49
DX: K85.90 Acute pancreatitis without necrosis or infection, unspecified (principal); I10 Essential (primary) hypertension; J45.909 Unspecified asthma, uncomplicated; E11.9 Type 2 diabetes mellitus without complications
CPT/HCPCS: 36415; 80053; 81003; 83690; 85025; 96361; 96374; 99284; J2270; J7030

== ENCOUNTER 2020-01-17 12:47 | Emergency (ER) | payer SELFPAY ==
[~2020-01-17] VITALS: Ht 162.6 cm; Wt 63.5 kg
[~2020-01-17 12:47] MED LIST changes: +ONDANSETRON ODT4 MG BC; +RANITIDINE HCL150 MG ORAL
[2020-01-17 13:42] LABS: APPEARANCE,URINE CLEAR; BILIRUBIN, URINE NEGATIVE (NEGATIVE); COLOR,URINE PALE YELLOW; GLUCOSE, URINE (UA) 4+ (NEGATIVE); KETONES,URINE NEGATIVE (NEGATIVE); LEUKOCYTE ESTERASE ,URINE 1+ (NEGATIVE); NITRITE,URINE NEGATIVE (NEGATIVE); PH,URINE 5 (4.5-8.0); PROTEIN,URINE NEGATIVE (NEGATIVE); UROBILINOGEN,URINE NORMAL MG/DL (0.0-1.0)
[2020-01-17 13:45] LABS: BASOPHILS % (AUTO) 0.9 % (0.0-2.0); EOSINOPHILS % (AUTO) 1.8 % (0.0-3.0); HEMATOCRIT 40.3 % (37.0-47.0); HEMOGLOBIN 14.1 G/DL (12.0-16.0); LYMPHOCYTES % (AUTO) 35.5 % (20.0-45.0); MEAN CORPUSCULAR VOLUME 82 FL (80-99); MONOCYTES % (AUTO) 6.5 % (1.0-10.0); NEUTROPHILS % (AUTO) 55.3 % (45.0-75.0); PLATELET COUNT 230 K/UL (150-450); RED BLOOD COUNT 4.94 M/UL (4.20-5.40); RED CELL DISTRIBUTION WIDTH 10.8 % (11.6-14.8); WHITE BLOOD COUNT 6.4 K/UL (4.8-10.8)
[2020-01-17 13:49] VITALS: BP 120/79
[2020-01-17 13:54] LABS: ANION GAP 11 mmol/L (5-15); BLOOD UREA NITROGEN 9 mg/dL (7-18); CALCIUM 10.1 MG/DL (8.5-10.1); CARBON DIOXIDE 25 MMOL/L (21-32); CHLORIDE 100 MMOL/L (98-107); CREATININE 0.9 MG/DL (0.55-1.30); POTASSIUM 4.1 MMOL/L (3.5-5.1); SODIUM 136 MMOL/L (136-145)
[2020-01-17] MEDS ORDERED: Insulin Human Regular 100units/ml 3ml IV ONE (14:00)
[2020-01-17 14:08] LABS: ALANINE AMINOTRANSFERASE 25 U/L (12-78); ALBUMIN 3.9 G/DL (3.4-5.0); ALKALINE PHOSPHATASE 134 U/L (46-116); ASPARTATE AMINO TRANSFERASE 18 U/L (15-37); BILIRUBIN,TOTAL 0.5 MG/DL (0.2-1.0)
--- NOTE | 2020-01-17 14:15 | Emergency Room Report ---
History of Present Illness General Chief Complaint: Abnormal Labs Source: Patient, Medical Record Present Illness HPI 59-year-old female with history of type 2 diabetes and hypertension here complaining of elevated glucose. Patient reports that she has not taken her metformin for 2-1/2 weeks as she simply forgot to take it. Also has chronic low back pain has been taking pain medication every day. Reports that for the past few days she has been feeling weak, lightheaded, extreme thirst and dryness of the mouth. Complains of urinary frequency however denies dysuria. Denies any vaginal discharge. Denies neuropathy at this time. Reports that she contacted her primary doctor and was told to come to the emergency room to check her blood glucoses and receive insulin if needed. Patient reports that she check her blood glucose at home and it was 500. Denies any chest pain, shortness of breath, fever and chills, headache and dizziness at this time. Vital signs within normal limits and patient appears to be afebrile. No unilateral generalized weakness noted. Patient is neurovascularly intact. Denies abdominal pain, nausea vomiting, diarrhea or constipation at this time. Allergies: Coded Allergies: No Known Allergies (Unverified , 12/27/18) COVID-19 Screening Contact w/high risk pt: No Recent Travel to affected area: No Experienced COVID-19 symptoms?: No Patient History Past Medical History: see triage record Past Surgical History: none Pertinent Family History: none Now: No Immunizations: UTD Reviewed Nursing Documentation: PMH: Agreed; PSxH: Agreed Nursing Documentation-PMH Past Medical History: No History, Except For Hx Cardiac Problems: No - Tendonitis, breast reduction Hx Hypertension: Yes Hx Pacemaker: No Hx Asthma: Yes Hx COPD: No Hx Diabetes: Yes Hx Cancer: No Hx Dialysis: No Hx Neurological Problems: No - Lower back surgery 06/2017 Hx Cerebrovascular Accident: No Hx Seizures: No Review of Systems All Other Systems: negative except mentioned in HPI Physical Exam Vital Signs Date Time Temp Pulse Resp B/P (MAP) Pulse Ox O2 Delivery O2 Flow Rate FiO2 01/17/20 12:52 98.1 80 16 124/83 (97) 97 Room Air Sp02 EP Interpretation: reviewed, normal General Appearance: no apparent distress, alert, GCS 15, non-toxic Head: normocephalic, atraumatic Eyes: bilateral eye normal inspection, bilateral eye PERRL ENT: hearing grossly normal, normal pharynx, no angioedema, normal voice Neck: full range of motion, supple/symm/no masses Respiratory: chest non-tender, lungs clear, normal breath sounds, no rhonchi, no retraction, no wheezing, speaking full sentences Cardiovascular #1: regular rate, rhythm, no edema, no murmur Gastrointestinal: normal bowel sounds, non tender, soft, non-distended, no guarding, no rebound Rectal: deferred Genitourinary: no CVA tenderness Musculoskeletal: back normal Neurologic: alert, motor strength/tone normal, oriented x3, sensory intact, responsive, speech normal Psychiatric: judgement/insight normal, memory normal, mood/affect normal, no suicidal/homicidal ideation Skin: no rash Lymphatic: no adenopathy Medical Decision Making PA Attestation All my diagnosis and treatment plans were reviewed ad discussed with my supervising physician Dr. Trujillo Diagnostic Impression: Primary Impression: Hyperglycemia Additional Impressions: Non compliance w medication regimen UTI (urinary tract infection) ER Course 59-year-old female with history of type 2 diabetes and hypertension here complaining of elevated glucose. Patient reports that she has not taken her metformin for 2-1/2 weeks as she simply forgot to take it. Also has chronic low back pain has been taking pain medication every day. Reports that for the past few days she has been feeling weak, lightheaded, extreme thirst and dryness of the mouth. Complains of urinary frequency however denies dysuria. Denies any vaginal discharge. Denies neuropathy at this time. Reports that she contacted her primary doctor and was told to come to the emergency room to check her blood glucoses and receive insulin if needed. Patient reports that she check her blood glucose at home and it was 500. Denies any chest pain, shortness of breath, fever and chills, headache and dizziness at this time. Vital signs within normal limits and patient appears to be afebrile. No unilateral generalized weakness noted. Patient is neurovascularly intact.Denies abdominal pain, nausea vomiting, diarrhea or constipation at this time. Ddx considered but are not limited to: DKA, hyperglycemia, UTI, pyelonephritis, urinary incontinence, prolapsed bladder Vital signs: are WNL, pt. is afebrile H&PE are most consistent with: Hyperglycemia, UTI, noncompliance with medication regimen ORDERS: Head CT no contrast, UA, urine cx, CBC, CMP, lipase due to history of pancreatitis, troponin, BMP, Keflex, Diflucan due to patient diabetes status.EKG , CXR ED INTERVENTIONS: NS bolus DISCHARGE: At this time pt. is stable for d/c to home. Will provide printed patient care instructions, and any necessary prescriptions. Care plan and follow up instructions have been discussed with the patient prior to discharge. Patient follow-up primary doctor and continue taking Metformin. If worsening symptoms return to the emergency room. Patient was evaluated in the context of the global COVID-19 pandemic, which necessitated consideration that the patient might be at risk for infection with the SARS-COV-2 virus that causes COVID-19. Institutional protocols and algorithms that pertain to the evaluation of patients at risk for COVID-19 are in a state of rapid change based on information relieved by multiple regulatory bodies including the CDC and the federal and state organizations. These policies and algorithms were followed during the patient's care in the ED. EKG Diagnostic Results Rate: normal Rhythm: NSR ST Segments: no acute changes Other Impression No acute ST changes Chest X-Ray Diagnostic Results Chest X-Ray Diagnostic Results : Chest X-Ray Ordered: Yes # of Views/Limited/Complete: 1 View Indication: Other EP Interpretation: Yes PA Xray: Interpretation reviewed, by supervising MD, and agrees with findings. Interpretation: no consolidation, no effusion, no pneumothorax Impression: No acute disease Electronically Signed by: Velasquez Motta PA-C CT/MRI/US Diagnostic Results CT/MRI/US Diagnostic Results : Imaging Test Ordered: CT head no contrast Impression No intracranial bleed, within normal limits Last Vital Signs Date Time Temp Pulse Resp B/P (MAP) Pulse Ox O2 Delivery O2 Flow Rate FiO2 01/17/20 13:49 98.1 98 16 120/79 97 Room Air Disposition: HOME, SELF-CARE Condition: Stable Scripts Fluconazole (FLUCONAZOLE) 100 Mg Tablet 150 MG ORAL ONCE, #3 TAB 0 Refills Prov: Velasquez Fine 01/17/20 Cephalexin* (KEFLEX*) 500 Mg Capsule 500 MG ORAL EVERY 12 HOURS for 7 Days, #14 CAP 0 Refills Prov: Velasquez Fine 01/17/20 Referrals: NON PHYSICIAN (PCP) Patient Instructions: Hyperglycemia, [id number] Additional Instructions: Continue taking your metformin, take medication as directed, follow-up with your primary care provider, if worsening symptoms return to the emergency room Velasquez Fine Jan 17, 2020 14:15
--- NOTE | 2020-01-17 14:47 | Diagnostic Imaging Report ---
Indications: Headache, weakness, dizziness Technique: Spiral acquisitions obtained through the brain. Angled axial and coronal 5 x 5 mm slices were reconstructed. Total dose length product 1098 mGycm. CTDI vol(s) 53 mGy. Dose reduction achieved using automated exposure control Comparison: 10/21/2018 Findings: No acute adrenal hemorrhage or edema. No mass effect nor midline shift. Normal pavon-white differentiation. Normal size ventricles and extra axial CSF spaces. Intact calvarium. Visualized orbits and sinuses are unremarkable. No significant interim change Impression: Negative The CT scanner at [facility] is accredited by the [employer] and the scans are performed using protocols designed to limit radiation exposure to as low as reasonably achievable to attain images of sufficient resolution adequate for diagnostic evaluation.
[2020-01-17 14:59] VITALS: BP 124/71
--- NOTE | 2020-01-17 15:13 | Diagnostic Imaging Report ---
Indication: Chest pain Technique: One view of the chest Comparison: 08/30/2019 Findings: Lungs and pleural spaces are clear. Heart size is normal. No significant interim change Impression: No acute process
[2020-01-17] MEDS ORDERED: CEPHALEXIN500 MG ORAL (19:31)
[2020-01-17] MEDS ORDERED: FLUCONAZOLE100 MG ORAL (19:31)
== END 2020-01-17 14:59 | disposition home or self-care (01) ==
LOC: EMR 13:28
DX: E11.65 Type 2 diabetes mellitus with hyperglycemia (principal); I10 Essential (primary) hypertension; Z91.14 Patient's other noncompliance with medication regimen; M54.5 Low back pain; G89.29 Other chronic pain; N39.0 Urinary tract infection, site not specified
CPT/HCPCS: 36415; 70450; 71045; 80053; 80307; 81003; 82009; 83690; 83735; 83880; 84484; 85025; 87086; 93005; 96361; 96374; 99284; G0480; J1815; J7030

== ENCOUNTER 2020-07-20 19:35 | Emergency (ER) | payer SELFPAY ==
[~2020-07-20] VITALS: Ht 162.6 cm; Wt 62.6 kg
[~2020-07-20 19:35] MED LIST changes: +CEPHALEXIN500 MG ORAL; +FLUCONAZOLE100 MG ORAL
[2020-07-20 19:46] VITALS: BP 153/92
--- NOTE | 2020-07-20 19:46 | NUR ---
ED Nurse Note: Pt walked in to ED c/o left eye pain x1 week. Pt reports small bump on the lower eyelid. Pt also reports headache and numbness to left arm. Denies blurry of vision. AAOx4, verbally responsive. No SOB, on room air.
--- NOTE | 2020-07-20 20:02 | Emergency Room Report ---
History of Present Illness General Chief Complaint: Eye Problems Source: Patient Present Illness HPI Patient is a 60-year-old female presents for increased left-sided eye discomfort. Reports having some headache. Previous history of diabetes. Denies any numbness or weakness to her hands. Had previous history of bad vision. She states is recently seen an eye doctor recently. Not been having any fever. Allergies: Coded Allergies: No Known Allergies (Unverified , 12/27/18) COVID-19 Screening Contact w/high risk pt: No Recent Travel to affected area: No Experienced COVID-19 symptoms?: No COVID-19 Testing performed [employer]: Yes - a week ago COVID-19 Screening: Negative COVID-19 COVID-19 Testing Source: [facility] Patient History Past Medical History: see triage record Reviewed Nursing Documentation: PMH: Agreed; PSxH: Agreed Nursing Documentation-PMH Hx Cardiac Problems: No - Tendonitis, breast reduction Hx Hypertension: Yes Hx Pacemaker: No Hx Asthma: Yes Hx COPD: No Hx Diabetes: Yes Hx Cancer: No Hx Dialysis: No Hx Neurological Problems: No - Lower back surgery 06/2017 Hx Cerebrovascular Accident: No Hx Seizures: No Review of Systems All Other Systems: negative except mentioned in HPI Physical Exam Vital Signs Date Time Temp Pulse Resp B/P (MAP) Pulse Ox O2 Delivery O2 Flow Rate FiO2 07/20/20 19:39 98.2 74 19 153/92 (112) 96 Room Air General Appearance: well appearing, no apparent distress, alert, GCS 15 Head: normocephalic, atraumatic Eyes: bilateral eye other - Left eye conjunctival erythema with small papular lesion to the lower lid. ENT: hearing grossly normal, normal voice Neck: full range of motion, supple Respiratory: lungs clear, no respiratory distress, speaking full sentences Cardiovascular #1: normal inspection Gastrointestinal: normal inspection, non tender Musculoskeletal: normal inspection, no calf tenderness Neurologic: normal gait Psychiatric: mood/affect normal Skin: no rash Medical Decision Making Diagnostic Impression: Primary Impression: Cyst of left lower eyelid Additional Impression: Conjunctiva disorder ER Course Presented for left-sided eye discomfort. Differential diagnosis include was not limited to allergic conjunctivitis, stye, cyst among others. Patient has a benign exam and does not appear to require any imaging or laboratory testing at this time. Patient appears to have some lesion to the left lower eyelid which does not have any definite evidence of infection. Patient does appear to have some chronically bad vision. Should recently obtain glasses. Patient does not have any evidence of focal neurologic deficit. Patient's visual acuity appears to be unremarkable. Patient was advised to follow-up with ophthalmology for recheck. She is given prescription for topical antibiotics. The patient is advised to follow up with ophthalmology in 1-2 days. Patient is advised to return if any worsening condition or if any changes in status that are concerning. This report is dictated with [employer]ed [employer] software which may occasionally lead to discrepancies related to use of this software. Last Vital Signs Date Time Temp Pulse Resp B/P (MAP) Pulse Ox O2 Delivery O2 Flow Rate FiO2 07/20/20 19:39 98.2 74 19 153/92 (112) 96 Room Air Status: improved Disposition: HOME, SELF-CARE Condition: Stable Festus Peng MD Jul 20, 2020 20:02
[2020-07-20] MEDS ORDERED: CILOXAN5 ML OP (20:04)
[2020-07-20 20:05] VITALS: BP 153/92
--- NOTE | 2020-07-20 20:05 | NUR ---
ED Nurse Note: Pt cleared by ERMD for discharge. DC instruction was given and explained to pt and verbalized understanding of teachings. prescription sent electronically to the pharmacy of choice. All medical deviecs such as ID band removed. Pt is AAO x4, ambulatory and left with all personal belongings.
== END 2020-07-20 20:05 | disposition home or self-care (01) ==
LOC: EMR 20:00
DX: H02.825 Cysts of left lower eyelid (principal); H11.9 Unspecified disorder of conjunctiva; I10 Essential (primary) hypertension; E11.9 Type 2 diabetes mellitus without complications; R51.9 Headache, unspecified
CPT/HCPCS: 99281